=== PATIENT | male | born 1995 | race Caucasian/White ===

== ENCOUNTER 2025-03-07 14:25 | Inpatient (IN) | payer SELFPAY ==
--- OUTSIDE RECORDS SUMMARY | 2025-03-05 19:22 | XMS_ITS | Encounter Summary ---
Author Organization [facility] Address [address] [place] [id number] Care Team Providers Care Gas Singer Name Role Phone Terry Green MD Primary Care Provider [phone] Reason for Visit * Reason Comments Behavioral Health Encounter Details Date Type Department Care Team (Late st Contact Info) Description 03/05/2025 7:22 PM EDT - 03/07/2025 12:25 PM EDT Emergency [facility] [address] [place] [id number] Darshan Flood MD 1 [facility] [place] [address] Ehsan Oseguera MD [address] [place] [phone] Dallas Rosales II, MD [address] [place] [id number] Marcus Hernandez MD [address] [place] [id number] Mookie Rodríguez MD [address] [place] [id number] Mookie Pantoja MD [address] [place] [id number] Floyd Alejandro MD [address] [place] [id number] Generalized anxiety disorder [F41.1] (Primary Dx); Depression, unspecified depression type Discharge Disposition: Transfer to Acute Care Hospital Social History Tobacco Use Types Packs/Day Years Used Date Smoking Tobacco: Never Assessed Sex and Gender Information Value Date Recorded Sex Assigned at Male 03/05/2025 7:48 PM EDT Legal Sex Male 3:43 PM EDT Gender Identity Male 03/05/2025 11:21 PM EDT Sexual Orientation Not on file documented as of this encounter Last Filed Vital Signs Vital Sign Reading Time Taken Comments Blood Pressure 124/82 03/07/2025 12:01 PM EDT Pulse 78 03/07/2025 12:01 PM EDT Temperature 36.4 C (97.5 F) 03/06/2025 8:55 AM EDT Respiratory Rate 18 03/07/2025 12:0 0 AM EDT Oxygen Saturation 98% 03/07/2025 12: 01 PM EDT Inhaled Oxygen Concentration - - Weight 77.1 kg (169 lb 15.6 oz) 03/07/2025 3:23 AM EDT Height 182.9 cm (6') 03/07/2025 3:23 AM EDT Body Mass Index 23.05 03/07/2025 3:23 AM EDT documented in this encounter Progress Notes * Jessica Salinas - 03/07/2025 10:33 AM EDT Behavioral Health Crisis Consult- Contact Note Patient: Charles Coffman : 1995 Admit Date: 03/05/2025 Date of Consult: 03/07/2025 Time of Consult: 10:33 AM Narrative: Patient: Charles Coffman Accepting Facility: [facility] Accepting Facility Address: [address] [place] [address] Accepting MD: Dr Jarquin Arrival Time: 1 PM arrival Nurse to Nurse Report: They will call the ED Other Labs or Needs: none HCP/Guardian (if applicable): none Reason for Section 12: self harm Information Given To: secure chat * Jessica Salinas - 03/07/2025 8:48 AM EDT Behavioral Health Crisis Consult- Contact Note Patient: Charles Coffman : 1995 Admit Date: 03/05/2025 Date of Consult: 03/07/2025 Time of Consult: 8:48 AM Narrative: Bed Search Inpatient Unit Referral Date Referral Time Began Review Date Began Review Time Accepted Date Accepted Time Decline Date Decline Time Reason If Decline Comment [facility] Accessible 03/06/25 7:26 AM EDT [facility] Accessible 03/06/25 7:26 AM EDT [facility] Accessible 03/06/25 7:26 AM EDT [facility] Accessible 03/06/25 7:26 AM EDT [facility] Accessible 03/06/25 7:26 AM EDT [facility] 03/06/25 7:26 AM EDT [facility] Accessible 03/06/25 7:27 AM EDT [facility] 03/06/25 7:27 AM EDT [facility] 03/06/25 7:27 AM EDT [facility] 03/07/25 8:47 AM EDT [facility] Accessible 03/07/25 8:47 AM EDT [facility] 03/07/25 8:47 AM EDT [facility] Accessible 03/07/25 8:47 AM EDT [facility] Accessible 03/07/25 8:47 AM EDT [facility] Accessible 03/07/25 8:47 AM EDT * Soni Barnett, COMPENSATION AGENT - 03/06/2025 9:51 AM EDT Behavioral Health Crisis Consult - Follow Up Patient: Charles Coffman : 1995 Admit Date: 03/05/2025 Date of Consult: 03/06/2025 Time of Consult: 9:51 AM CC: Chief Complaint Patient presents with Behavioral Health Chart Reviewed, case discussed with team and staff. Patient reports that he is fine , but seems irritable that he remains at the ED Updates: Psych consult outcome/psych medications: Collateral Contact: Yes ([phone] - Tammra - girlfriend) Medical/Psychiatric/Substance/Social/Family History: Histories from previous consult note of 03/05 remain unchanged, except as note in HPI. Current Medications: Scheduled Medications[1] Current PRN: PRN Medications[2] Allergies: Levofloxacin Physical Exam: Patient Vitals for the past 24 hrs: BP Temp Temp src Pulse Resp SpO2 03/06/25 0855 116/76 97.5 ??F (36.4 ??C) -- 76 20 100 % 03/05/25 1927 117/69 98.1 ??F (36.7 ??C) Oral 87 15 98 % Mental Status Exam: No changes Labs, Imaging & Other Studies: Laboratory: Recent lab results have been reviewed and are notable for Results for orders placed or performed during the hospital encounter of 03/05/25 (from the past 24 hours) Basic Metabolic Panel Result Value Ref Range Sodium 139 134 - 144 mmol/L Potassium 4.1 3.2 - 5.1 mmol/L Chloride 103 97 - 109 mmol/L Total CO2/Bicarbonate 28 20 - 32 mmol/L Anion Gap 8 5 - 15 mmol/L Anion Gap BUN 14 9 - 26 mg/dL Creatinine, Blood 1.43 (H) 0.70 - 1.30 mg/dL Glucose, Blood 97 70 - 110 mg/dL Calcium 9.4 8.5 - 10.5 mg/dL Estimated GFR (MDRD) 58 (L) >=60 mL/min/BSA Drug Screen, Urine Result Value Ref Range Amphetamines Screen, Urine Negative Negative Barbiturates Screen, Urine Negative Negative Benzodiazepine Screen, Urine Positive (A) Negative Buprenorphine Screen, Urine Negative Negative Cannabinoids Screen, Urine Negative Negative Cocaine Metabolite Screen, Urine Negative Negative Methadone Screen, Urine Negative Negative Methamphetamine, Urine Negative Negative Opiates Screen, Urine Negative Negative Oxycodone Screen, Urine Positive (A) Negative TCA, Urine Negative Negative Creatinine, John Urine 91.3 No Established Reference Range mg/dL Fentanyl Screen, Urine Negative Negative Tramadol Screen, Urine Negative Negative 6-Aceytlmorphine Screen, Urine Negative Negative Phencyclidine Screen, Urine Negative Negative Plasma Toxicology Screen Result Value Ref Range Acetaminophen Result,Blood <3 (L) Therapuetic Range 10-30 ug/mL Alcohol <10 <10 mg/dL Salicylate Level, Blood <5 (L) 15 - <30 mg/dL CBC and Differential Result Value Ref Range WBC 9.84 4.00 - 11.00 K/uL RBC 4.84 4.10 - 5.60 M/uL Hemoglobin 14.4 12.7 - 16.7 g/dL Hematocrit 42.4 38.0 - 50.0 % MCH 29.8 23.0 - 37.0 pg MCHC 34.0 29.0 - 38.0 g/dL MCV 88 82 - 98 fL RDW 12.2 11.5 - 15.0 % Platelet Count 281 150 - 450 K/uL MPV 8.5 8.0 - 14.0 fL Neutrophil 57.4 % Lymphocyte 31.2 % Monocyte 9.0 % Eosinophil 1.5 % Basophil 0.6 % Immature Granulocyte ([place], Myelo, Promyelocyte) 0.3 % Absolute Neutrophil Count 5.64 1.50 - 7.70 K/uL Absolute Immature Granulocyte ([place], Myelo, Promyelocyte) 0.03 0.00 - 0.09 K/uL Absolute Lymphocyte Count 3.07 1.00 - 5.00 K/uL Absolute Monocyte Count 0.89 0.10 - 1.00 K/uL Absolute Eosinophil Count 0.15 0.00 - 0.70 K/uL Absolute Basophil Count 0.06 0.00 - 0.20 K/uL Fentanyl Screen, Urine Result Value Ref Range Fentanyl Screen, Urine Negative Negative Tramadol Screen, Urine Result Value Ref Range Tramadol Screen, Urine Negative Negative 6-Acetylmorphine Screen, Urine Result Value Ref Range 6-Aceytlmorphine Screen, Urine Negative Negative EKG: No studies were reviewed. C-SSRS: Green Suicide Severity Rating Scale (C-SSRS) Since Last Contact Screener 1) Have you wished you were or wished you could go to sleep and not wake up? (Since Last Contact): No 2) Have you actually had any thoughts about killing yourself? (Since Last Contact): No 6) Have you done anything, started to do anything, or prepared to do anything to end your life? (Since Last Contact): No C-SSRS Risk Level (Since Last Contact Screener): No Risk Indicated (03/06/25 0946 : Soni Barnett COMPENSATION AGENT) Assessment: Patient is a 29 y.o. male with past medical and psychiatric history as above now presents as fine . The patient does seem to be immediately closed off to this clinician, does not seem to want to engage and is irritable that he remains at the hospital. This clinician asks the patient to recall what brought him to the emergency room, he shares, my girlfriend called the slag dumper because I was in the bathroom with the door locked , he goes on to say, she said I was trying to hurt myself . This clinician inquired with the patient why his girlfriend mayhave been concerned that he would hurt himself, he responds, Maybe because I am stressed- she is 8weeks , rent, my job . The patient reports that PD showed up and they told him he had to come to the hospital. When this clinician inquired if the patient had a belt around his neck, the patient responds, police said they saw a tigre around my neck, but she told slag dumper I had a belt around my neck . This clinician inquired what the williamson were around his neck if he did not use a belt, he responded by saying that it could have been from me and her getting into it , then stating that it was a crazy night. The patient ensures this clinician that there is No DV going on . The patient sharesthat the slag dumper would have been able to see him if he were doing anything because the kitchen is right by the front door, but the patient states, She is 8 weeks and nuts when asked why his girlfriend would have called the slag dumper and be worried about him. The patient denies any past hx of inpatient admissions, denies SI/HI/AH/VH. 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 The patients energy is high, hereports going to work and the gym every day, sleep is alright , he shares that he has anxiety so it can be difficult for him to go to bed, appetite is wnl, he shares that he eats a lot. The patient seems to present with limited insight and judgement, the patient does not seem to provide clear explanations of what occurred when he was brought into the emergency room, and is guarded with answers to questions. The patient is unable to engage in safety planning. Due to continued concern of the patients safety, as well as being found with a belt around his neck, displaying concern of behaviors and ability to remain safe, the patient will remain an inpatient level of care. There also continues to be concern of the patients grossly impaired insight and judgement. Recommendations: IPLOC Requested LOC: Barriers to placement/Specialty Placement Required: Disposition Recommendation: Inpatient Level of Care Behavioral Health Diagnosis: F41.9 Anxiety Duration: Time Spent (min): 45 Case d/w: RN, , AOC Signed by: Soni Barnett LCSW [1] [2] nicotine polacrilex * Jessica Salinas - 03/06/2025 7:27 AM EDT Behavioral Health Crisis Consult- Contact Note Patient: Charles Coffman : 1995 Admit Date: 03/05/2025 Date of Consult: 03/06/2025 Time of Consult: 7:27 AM Narrative: Bed Search Inpatient Unit Referral Date Referral Time Began Review Date Began Review Time Accepted Date Accepted Time Decline Date Decline Time Reason If Decline Comment [facility] Accessible 03/06/25 7:26 AM EDT [facility] Accessible 03/06/25 7:26 AM EDT [facility] Accessible 03/06/25 7:26 AM EDT [facility] Accessible 03/06/25 7:26 AM EDT [facility] Accessible 03/06/25 7:26 AM EDT [facility] 03/06/25 7:26 AM EDT [facility] Accessible 03/06/25 7:27 AM EDT [facility] 03/06/25 7:27 AM EDT [facility] 03/06/25 7:27 AM EDT documented in this encounter Consult Notes * Rhonda Pearce LCSW - 03/05/2025 11:15 PM EDTAssociated Order(s): BEHAVIORAL HEALTH CRISIS EVALUATION Behavioral Health Crisis Consult - Initial Assessment Patient: Charles Coffman : 1995 Admit Date: 03/05/2025 Date of Consult: 03/05/2025 Time of Consult: 11:15 PM Consult Requested by: No att. providers found Reason for Consult: Reason for Consult: concerns for safety Chief Complaint Patient presents with Behavioral Health History of Present Illness: Patient is a 29 y.o. male with past medical and psychiatric history as listed who presented to the hospital on 03/05/2025 for Behavioral Health. Behavioral Health is consulted for mental health evaluation and level of care recommendations. The patient with history of anxiety, PTSD, and substance use disorder presents under Section 12 after girlfriend expressed concern for self-harm. Per report, patient was found with belt williamson on his neck on two occasions. Patient denies suicidal intent, stating, ???My girlfriend is just hormonal because she???s .?? He endorses increased stress related to finances, maintaining sobriety, and his girlfriend???s (8 weeks). Patient admits to buying Ativan ???off the street,?? taking approximately 0.5- 2mg today for anxiety, and prescribed oxycodone yesterday for dental procedure. Denies regular use or intent to overdose. States he has been sober from fentanyl for 10 months after completing treatment at [facility]. Reports poor sleep and racing thoughts, fair appetite, and identifies mood as ???stressed and overwhelmed.?? Denies SI/HI, AH/VH. While in bathroom, patient was heard making loud noises. Security located small bag of blue/green pills on his person; pills disposed. Patient changed into paper scrubs and remained calm. PT very hesitant to provide contact information for his girlfriend stating she is asleep. Finally provided information, however recording states phone number is not reachable. Attempted text message as well with no response. Per [place] [employer], officers were dispatched after girlfriendreported patient locked himself in the bathroom and was attempting to harm himself. Girlfriend had recently confronted patient after finding messages with other women on his phone. Upon arrival, officers observed the patient with a belt around his neck and visible ligature williamson consistent with self-strangulation. Officers reported patient was agitated and stated, ???I feel like I???m drowning.?? Patient was transported under Section 12. Medical History: has no past medical history on file. has no past surgical history on file. Psychiatric History: History of psychiatric illness?: No History of suicidal ideation?: No History of non-suicidal self injury?: No History of interpersonal aggression?: No History of past VARGAS?: Yes Treatment History?: Yes Inpatient Treatment:: Detox Current Providers?: No Collateral Contact: Yes ([phone] - [facility] - girlfriend) Home Medications: Prescriptions Prior to Admission[1] Current Medications: Scheduled Medications[2] Current PRN: PRN Medications[3] Allergies: Levofloxacin Substance Use History Alcohol: Substance and Sexual Activity Alcohol Use Not on file In the past 12 months,have you had 5 or more drinks(men)/4 or more drinks (women) containing alcohol in one day?: No Tobacco: has no history on file for tobacco use. Other: has no history on file for drug use. Prescription Medications: In the past 12 months,have you used any prescription medications just for the feeling, more than prescribed or that were no prescribed for you?: Yes Types of Medications:: Benzodiazepines Use/ frequency per week:: getting Ativan from a friend, has used ativan 3-4 times in past month andclonipin 2-3 times Last use:: 03/05/25 Substances: In the past 12 months, have you used any drugs?: Yes Drugs used:: Fentanyl Use/ frequency per week:: sober for 10 months Medical and Psychiatric Consequences: Medical/Psychiatric Consequences:: None Psychosocial Consequences: Psychosocial consequences:: None Social History: lives with his girlfriend of one year, she is 8 weeks , found out about a month ago. Also has a son who has limited contact with, son lives in [place] with his bio MO. No contact with his MO as he reports she is an alcoholic, never knew his FA. States little brother, uncle, girlfriend, sister, cousin are his support system. 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 Family History: Family History[4] Family history of psychiatric illness?: Yes Family history of VARGAS?: Yes Family history of suicidal ideation, attempt or completed suicide?: (unknown) Physical Exam: Patient Vitals for the past 24 hrs: BP Temp Temp src Pulse Resp SpO2 03/05/25 1927 117/69 98.1 ??F (36.7 ??C) Oral 87 15 98 % Mental Status Exam: Mental Status Exam General Appearance: Appears stated age, well-developed, well-nourished, appropriately groomed, appropriately dressed and no apparent distress. Level of Consciousness: Alert. Orientation: Oriented to person, place and time. Attitude and Behavior: Cooperative. Guarded. Eye Contact: Eye contact intermittent. Psychomotor Activity: Normal. Speech: Normal rate, volume, rhythm, coherence, articulation, prosody and pitch. Language: Normal. Mood: Patient description of mood: Stressed and overwhelmed. Affect: Full range. Thought Process and Associations: Logical and goal directed. Thought Content: Normal. No suicidal ideation, no self-injurious ideation, no homicidal ideation and not actively hallucinating. No delusions and no obsessions. Attention Span: Appropriate. Memory: Grossly intact. Fund of Knowledge: Normal. Cognition: Normal. Insight: Fair. Judgment: Resists help despite evidence of mental illness. Labs, Imaging & Other Studies: Laboratory: Recent lab results have been reviewed and are notable for see below Results for orders placed or performed during the hospital encounter of 03/05/25 (from the past 24 hours) Basic Metabolic Panel Result Value Ref Range Sodium 139 134 - 144 mmol/L Potassium 4.1 3.2 - 5.1 mmol/L Chloride 103 97 - 109 mmol/L Total CO2/Bicarbonate 28 20 - 32 mmol/L Anion Gap 8 5 - 15 mmol/L Anion Gap BUN 14 9 - 26 mg/dL Creatinine, Blood 1.43 (H) 0.70 - 1.30 mg/dL Glucose, Blood 97 70 - 110 mg/dL Calcium 9.4 8.5 - 10.5 mg/dL Estimated GFR (MDRD) 58 (L) >=60 mL/min/BSA Drug Screen, Urine Result Value Ref Range Amphetamines Screen, Urine Negative Negative Barbiturates Screen, Urine Negative Negative Benzodiazepine Screen, Urine Positive (A) Negative Buprenorphine Screen, Urine Negative Negative Cannabinoids Screen, Urine Negative Negative Cocaine Metabolite Screen, Urine Negative Negative Methadone Screen, Urine Negative Negative Methamphetamine, Urine Negative Negative Opiates Screen, Urine Negative Negative Oxycodone Screen, Urine Positive (A) Negative TCA, Urine Negative Negative Creatinine, John Urine 91.3 No Established Reference Range mg/dL Fentanyl Screen, Urine Negative Negative Tramadol Screen, Urine Negative Negative 6-Aceytlmorphine Screen, Urine Negative Negative Phencyclidine Screen, Urine Negative Negative Plasma Toxicology Screen Result Value Ref Range Acetaminophen Result,Blood <3 (L) Therapuetic Range 10-30 ug/mL Alcohol <10 <10 mg/dL Salicylate Level, Blood <5 (L) 15 - <30 mg/dL CBC and Differential Result Value Ref Range WBC 9.84 4.00 - 11.00 K/uL RBC 4.84 4.10 - 5.60 M/uL Hemoglobin 14.4 12.7 - 16.7 g/dL Hematocrit 42.4 38.0 - 50.0 % MCH 29.8 23.0 - 37.0 pg MCHC 34.0 29.0 - 38.0 g/dL MCV 88 82 - 98 fL RDW 12.2 11.5 - 15.0 % Platelet Count 281 150 - 450 K/uL MPV 8.5 8.0 - 14.0 fL Neutrophil 57.4 % Lymphocyte 31.2 % Monocyte 9.0 % Eosinophil 1.5 % Basophil 0.6 % Immature Granulocyte ([place], Myelo, Promyelocyte) 0.3 % Absolute Neutrophil Count 5.64 1.50 - 7.70 K/uL Absolute Immature Granulocyte ([place], Myelo, Promyelocyte) 0.03 0.00 - 0.09 K/uL Absolute Lymphocyte Count 3.07 1.00 - 5.00 K/uL Absolute Monocyte Count 0.89 0.10 - 1.00 K/uL Absolute Eosinophil Count 0.15 0.00 - 0.70 K/uL Absolute Basophil Count 0.06 0.00 - 0.20 K/uL Fentanyl Screen, Urine Result Value Ref Range Fentanyl Screen, Urine Negative Negative Tramadol Screen, Urine Result Value Ref Range Tramadol Screen, Urine Negative Negative 6-Acetylmorphine Screen, Urine Result Value Ref Range 6-Aceytlmorphine Screen, Urine Negative Negative EKG: No studies were reviewed. C-SSRS Screener and SAFE-T: Green Suicide Severity Rating Scale (C-SSRS) Screener 1) In the past month, have you wished you were or wished you could go to sleep and not wake up?: No 2) In the past month, have you actually had any thoughts of killing yourself?: No 6a.) Have you ever done anything, started to do anything, or prepared to do anything to end your life?: No C-SSRS Screener Risk Level: No Risk Indicated History of Psychiatric Diagnosis:: Alcohol/Substance Use Disorder Presenting Symptoms: Anxiety and/or panic, Hopelessness or despair Family History: Other (Comment) (substance use) Precipitants/ Stressors/ Interpersonal: History of trauma, Social isolation Change in Treatment: Not receiving treatment Access to lethal methods: Ask specifically about presence or absence of a firearm in the home or ease of accessing: No Step 2: Identify Protective Factors (Protective factors may not counteract significant acute suicide risk factors) Internal Protective Factors: Identifies reason for living, Identified coping strategies External Protective Factors: Active day structures- engaged in school, work, and/or volunteer work Step 4: Guidelines to Determine Level of Risk and Develop Interventions to LOWER Risk Level Rationale for Suicide Risk Level: PT denies thoughts, plan, or intent to harm himself. However circumstances of presentation include that for the past few nights his girlfriend has noticed him to be in the bathroom for extended periods of time and to come out of the bathroom with belt williamson around his neck. He denies this, stating his girlfriend is and hormonal . Denies HX of attempts. Management of Suicide Risk: Because PT was observed by police to have a belt around his neck and visible williamson, the patient will be further assessed for psychiatric inpatient level of care Assessment: Patient is a 29 y.o. male with past medical and psychiatric history as above now presents under Section 12 after his girlfriend expressed concern for self-harm. Collateral from [place] [employer] indicates the patient placed a belt around his neck following a conflict with his girlfriend regarding possible infidelity. Officers observed ligature williamson, noted patient agitation, and reportedhe stated, ???I feel like I???m drowning.?? The patient denies suicidal intent, attributing his behavior to stress related to finances, work, housing, relationship conflict, and his girlfriend???s . He reports episodic non-prescribed benzodiazepine use and prescribed oxycodone for a recent dental procedure. Mood is ???stressed and overwhelmed,?? with poor sleep and situational anxiety. Mental status examination: alert, oriented x4, calm, cooperative, linear thought process, congruentaffect, intact cognition, fair insight/judgment, no hallucinations or delusions. Behavioral observations include prior loud noise in the bathroom and possession of non-prescribed pills, which weredisposed. Given recent self-harm with a lethal means, visible ligature williamson, agitation, acute stress, and recent substance misuse, the patient is assessed at risk for self-harm. Inpatient psychiatric treatment is indicated to ensure safety, provide stabilization, monitor for self-harm or substance-related risk, initiate or adjust psychiatric treatment, and coordinate outpatient follow-up. Consult with ED Dr Flood who is in agreement. Recommendations: IP LOC for safety and stabilizaiton Intervention and Stabilization Services Requested: Disposition Recommendation: Patient meets criteria for opioid use disorder (OUD): No Behavioral Health Diagnosis: F41.9 Unspecified Anxiety Disorder Duration: Discussed with Wood Furniture Assembler: No Discussed with Medical Team: Yes . Dr Darshan Flood Signed by: Rhonda Pearce LCSW [1] (Not in a hospital admission) [2] [3] [4] No family history on file. documented in this encounter ED Notes * Denise Law RN - 03/07/2025 11:27 AM EDT Nurse to nurse given to receiving facility at [facility]. * Madisyn Marcos RN - 03/07/2025 7:21 AM EDT Breakfast tray ordered * Shaila Bolivar RN - 03/07/2025 3:25 AM EDT Assumed care of pt. Pt resting w/ eyes closed in supine position - no acute distress noted w/ visible chest rise and fall visualized, resps easy and unlabored. Safety maintained w/ continuing safety watch. * Stacia Castanon RN - 03/06/2025 10:52 PM EDT Clinician met with this pt and reiterated the plan to stay. Pt in denial of all statements his girlfriend claimed he made but maintains calm and no aggressive behavior noted * Stacia Castanon RN - 03/06/2025 5:27 PM EDT Pt was updated by this RN that he will be going inpatient due to his evaluation that deemed him unsafe to go back home at this time. Pt states he wants to go home and sleep in his own bed. Clinician contacted at this time and will speak with patient about an updated plan. Dinner ordered * Denise Law RN - 03/06/2025 12:30 PM EDT RN at bedside at this time, vitals checked and stable. Patient noticed to be resting in room at this time. This RN encouraged patient to order lunch. Patient refused food at this time. Patient did not eat breakfast. RN ordered lunch tray to encourage patient to eat. Security watch remains in placed. * Madisyn Marcos RN - 03/06/2025 8:57 AM EDT Pt awake and ambulatory to bathroom, vitals taken. Offered breakfast tray which pt declined. Offered coffee which pt also declined. Pt stating he wants the doctor so he can leave. Explained to pt hisplan of care and that he cannot leave. Security watch continues. Pt denies taking any daily prescribed medications. * Madisyn Marcos RN - 03/06/2025 8:21 AM EDT Pt sleeping, security watch continues. Breakfast tray ordered. * Jessica Osorio RN - 03/06/2025 7:01 AM EDT Pt resting w/ eyes closed - no acute distress noted w/ visible chest rise and fall visualized, resps easy and unlabored. Safety maintained w/ continuing safety watch. * Jessica Osorio RN - 03/06/2025 4:04 AM EDT Pt resting w/ eyes closed - no acute distress noted w/ visible chest rise and fall visualized, resps easy and unlabored. Safety maintained w/ continuing safety watch. * Esperanza Heaton RN - 03/06/2025 12:30 AM EDT Pt asking for an update. Pt made aware he is an inpatient bed search and will be in the ED until they find him a bed. Pt angry and yelling. Pt verbalizing he rather be in longterm then here . Pt worriedabout not working and not being able to afford his rent. Pt stated I would rather kill myself thenbe homeless and have no money . Pt made aware again that he is here on a section 12 from the police and he cannot go anywhere. Pt asked not to yell and told that there are manager rn case that can helpgive him resources if he feels that he needs them. Pt sitting at the edge of the bed talking with security. Security in hallway and safety measures in place. * Esperanza Heaton RN - 03/05/2025 9:12 PM EDT Pt went to the bathroom. Pt began making loud noises while in the bathroom. Security checked on pt d/t loud noises. Pt was found wearing multiple layers of pants. Pt searched again by security andchanged into paper scrubs. Upon securities search pt was found with small bag of blue and green chevak pills. Pills disposed in wasted by Ronal Camargo RN. This RN and Trevor crossing guard, witnessed RN waste pills. Pt back in stretcher. Security in hallway and safety measures in place. * Mary Jo Winchester RN - 03/05/2025 7:24 PM EDT BIBA from home, girlfriend concerned because patient has been buying anxiety meds off the street and both tonight and last night patient locked himself in the bathroom and came out with belt williamson onhis neck. Girlfriend told a friend and friend called 911. Pt reports hx psychiatric treatment in past. Arrives on section 12 by police. Pt denies SI, states that his girlfriend just found out she is and is hormonal . Denies that he tried to hang himself but reports he bought prescription ativan from the street. * Floyd Alejandro MD - 03/05/2025 7:21 PM EDT Date of service: 03/05/2025 EMERGENCY DEPARTMENT ENCOUNTER NURSING TRIAGE NOTE Triage Notes Mary Jo Winchester RN 03/05/2025 7:39 PM BIBA from home, girlfriend concerned because patient has been buying anxiety meds off the street and both tonight and last night patient locked himself in the bathroom and came out with belt williamson onhis neck. Girlfriend told a friend and friend called 911. Pt reports hx psychiatric treatment in past. Arrives on section 12 by police. Pt denies SI, states that his girlfriend just found out she is and is hormonal . Denies that he tried to hang himself but reports he bought prescription ativan from the street. Original note by Mary Jo Winchester RN at 03/05/2025 7:27 PM Mary Jo Winchester RN 03/05/2025 7:27 PM BIBA from home, girlfriend concerned because patient has been buying anxiety meds off the street and both tonight and last night patient locked himself in the bathroom and came out with belt williamson onhis neck. Girlfriend told a friend and friend called 911. Pt reports hx psychiatric treatment in past. Addendum to note by Mary Jo Winchester RN at 03/05/2025 7:39 PM Triage Notes Reviewed by Provider: Floyd Alejandro MD 03/07/2511:52 AM Previous Medical Records Reviewed: yes History Obtained From: patient CHIEF COMPLAINT Chief Complaint Patient presents with Behavioral Health HPI Charles Coffman is a 29 y.o. male who presents in on a section 12 from police. Patient's girlfriend called and stated that patient locked himself in the bathroom and came out with belt williamson on his neck. He denies hanging himself. According to the section, she reported that this happened 2 days ago also. He denies this happening. He denies any thoughts of hurting himself. He reports that his girlfriend has been hormonal since she is 8 weeks . This was not an expected . He has been buying benzos off the street. He admits to taking an Ativan and Klonopin today. Denies any alcohol use. Denies any medical complaints but does report that he currently has a 1 cm kidney stone that he needs to have surgery on. PAST MEDICAL HISTORY Past Medical History[1] FAMILY HISTORY Family History[2] SOCIAL HISTORY Social History[3] SURGICAL HISTORY Past Surgical History[4] CURRENT MEDICATIONS ALLERGIES Allergies[5] PHYSICAL EXAM VITAL SIGNS: Patient Vitals for the past 24 hrs: BP Pulse Resp SpO2 Height Weight 03/07/25 0323 -- -- -- -- 1.829 m (6') 77.1 kg (169 lb 15.6 oz) 03/07/25 0000 -- -- 18 -- -- -- 03/06/25 2108 108/64 55 17 98 % -- -- 03/06/25 1226 117/69 67 18 100 % -- -- Constitutional: Well developed, well nourished, no acute distress, non-toxic appearance. Appears high Eyes: EOMI, conjunctiva normal. HENT: Atraumatic, oropharynx moist. Neck supple. No markings noted to neck Respiratory: No respiratory distress, normal breath sounds. Cardiovascular: Normal rate,normal rhythm, no murmurs Musculoskeletal: No edema, atraumatic Skin: Warm, dry, no rash. Neurologic: Alert & oriented x 3, no focal deficits. EKG/RADIOLOGY/LABS No results found. No results found for this or any previous visit (from the past 24 hours). ED COURSE/PROCEDURES/ASSESSMENT This is a 29-year-old male who is brought in on a section 12 after his girlfriend reported that he tried to hang himself behind a closed door. Patient denies this. Patient was medically cleared and will be seen by psych clinician. Patient signed out to Dr. Flood at change of shift. MDM Clinical Impression 1. Generalized anxiety disorder [F41.1] 2. Depression, unspecified depression type Disposition: ED Disposition ED Disposition Transfer to Psych Facility Condition -- Comment -- ED Prescriptions None RICK Mir 03/05/25 2316 RICK Mir 03/05/25 2321 ADDENDUM: Care of patient signed out to me by Yoselyn Rader with plan for evaluation by psych clinician. Seen by behavioral health clinician. Patient is denying SI, but she spoke with police who confirmedsuicide attempt. They are recommending inpatient psych placement, which seems appropriate. The patient???s care was escalated to observation status at 11:45 PM on 03/05/25. Observation was necessary for serial behavioral health assessments related to suicidality. 1:02 AM Patient became somewhat more animated and argumentative with security. I went and met with him. I explained that he was currently on a section 12 and that the behavioral health clinician recommended inpatient psychiatric placement. He is frustrated about this. I offered medications, he was treated with oral Ativan as well as nicotine gum. He did seem more calm after this discussion. Care of patient will be signed out to Dr. Oseguera at change of shift. Darshan Flood MD 03/06/25 0103 The patient was signed out to me by Dr. Rosales and was re-evaluated at 4:02 PM on 03/06/25. They are generally well appearing, in no acute distress, calm, cooperative, organized, denying hallucinations on exam. Still awaiting inpatient psychiatric bed availability. Home medications have been ordered. Marcus Hernandez MD 03/06/25 1602 The patient was signed out to me by Dr. Oseguera. They are generally well appearing, in no acute distress, calm, cooperative, organized, denying hallucinations on exam. My final assessment includes that the patient continues to require an inpatient level of care for their psychiatric needs and will be escalated to hospitalization. The patient was discharged from observation status at 11:52 AM on 03/07/25. They have been accepted at [facility]. Section 12 and transfer paperwork completed. The patient is aware of the plan. [1] No past medical history on file. [2] No family history on file. [3] Social History Socioeconomic History Marital status: Single [4] No past surgical history on file. [5] Allergies Allergen Reactions Levofloxacin Unknown LEVAQUIN Floyd Alejandro MD 03/07/25 1153 documented in this encounter Miscellaneous Notes * Care Coordination Note - JAYESH Zamudio - 03/06/2025 8:15 PM EDT Made 2 attempts to meet w/ patient at RN's request- on both occasions he was asleep in room 30 and security requested not to wake patient. If patient wakes during this shift security will alert this lead technical writer. Patient to be informed on decision making for Section 12 / inpatient recommendation. Patient was found on 03/05 evening with belt tightened around his neck, ligature williamson per the Sherice GONZALES who issued the initial Section 12. Patient's partner had called 911 reporting patient behaving bizarrely, locked in bathroom. Patient seen for initial eval on night of 03/05 and follow-up evalon morning of 03/06 - both supported Section 12 for inpatient treatment. 8:40pm met with patient, he states he wants to leave the ED at this time. Explained his current status as inpatient bed search. Patient is unhappy with decision making. He reports none of the information provided is true, states he was not making attempt to harm himself. States he did not put a belt around his neck and his girlfriend and Sherice GONZALES are lying. Sprinkler Tender explained status as uninsured and financial services contacted to update his health plan. Patient states he prefers to remain uninsured so you have to let me go . Advised patient his insurance status does not guide our clinical decision making. He remains in behavioral control, curled up on his side in bed covered with blankets, lights and TVon. He expresses his understanding to decision making, remains in control with no need for intervention. He declines having any additional needs at this time. * Care Coordination Note - JAYESH Zamudio - 03/06/2025 3:49 PM EDT Notified Change Financial requesting support for insurance screening. documented in this encounter Plan of Treatment Scheduled Orders Name Type Priority Associated Diagnoses Orde r Schedule ECG 12 lead ECG STAT Once for 1 Oc currences starting 03/05/2025 until 03/05/2025 documented as of this encounter Procedures Procedure Name Priority Date/Time Associated Diagnosis Comments 6-ACETYLMORPHINE SCREEN, URINE STAT 03/05/2025 8:40 PM EDT CBC AND DIFFERENTIAL STAT 03/05/2025 8:40 PM EDT TOXICOLOGY SCREEN, BLOOD STAT 03/05/2025 8:40 PM EDT DRUG SCREEN, URINE STAT 03/05/2025 8: 40 PM EDT TRAMADOL SCREEN, URINE STAT 03/05/2025 8:40 PM EDT FENTANYL SCREEN, URINE STAT 03/05/2025 8:40 PM EDT CBC AND DIFFERENTIAL STAT 03/05/2025 8:40 PM EDT BASIC METABOLIC PANEL STAT 03/05/2025 8:40 PM EDT documented in this encounter Results * 6-Acetylmorphine Screen, Urine (03/05/2025 8:40 PM EDT) 6-Aceytlmorphine Screen, Urine Negative Negative OleOle [id number] 03/05/2025 9:03 PM EDT [facility] Comment: 6-acetylmorphine cutoff is 10 ng/mL 6-acetylmorphine Add on order [id number] Opiates and Oxycodone, Urine, Confirmation, if confirmation desired. Results should be used for medical purposes only and not for any legal or employment evaluative purposes. Urine URINE SPECIMEN / Unknown Collection / Unknown 03/05/2025 8:40 PM EDT 03/05/2025 8:42 PM EDT Darshan Flood MD URINE ORDERABLES Final Result Performing Organization Address [facility] de Phone Number [facility] [address] [place] [address], * Tramadol Screen, Urine (03/05/2025 8:40 PM EDT) Tramadol Screen, Urine Negative Negative DEGROOT [id number] 03/05/2025 9:03 PM EDT [facility] Comment: Tramadol cutoff is 200 ng/mL Tramadol. Add-on order [id number] Tramadol Confirmation, Urine, if confirmation desired. Results should be used for medical purposes only and not for any legal or employment evaluative purposes. Urine URINE SPECIMEN / Unknown Collection / Unknown 03/05/2025 8:40 PM EDT 03/05/2025 8:42 PM EDT us Darshan Flood MD URINE ORDERABLES Final Result Performing Organization Address [facility] Phone Number [facility] [address] [place] [address], * Fentanyl Screen, Urine (03/05/2025 8:40 PM EDT) Fentanyl Screen, Urine Negative Negative [facility] [id number] 03/05/2025 9:03 PM EDT [facility] Urine URINE SPECIMEN / Unknown Collection / Unknown 03/05/2025 8:40 PM EDT 03/05/2025 8:42 PM EDT us Darshan Flood MD URINE ORDERABLES Final Result Performing Organization Address [facility] de Phone Number [facility] [address] [place] [address], * CBC and Differential (03/05/2025 8:40 PM EDT) WBC 9.84 4.00 - 11.00 K/uL 03/05/2025 8:45 PM EDT [facility] RBC 4.84 4.10 - 5.60 M/uL 03/05/2025 8:45 PM EDT [facility] Hemoglobin 14.4 12.7 - 16.7 g/dL 03/05/2025 8:45 PM [facility] Hematocrit 42.4 38.0 - 50.0 % 03/05/2025 8:45 PM [facility] MCH 29.8 23.0 - 37.0 pg 03/05/2025 8:45 PM [facility] MCHC 34.0 29.0 - 38.0 g/dL 03/05/2025 8:45 PM [facility] MCV 88 82 - 98 fL 03/05/2025 8:45 PM [facility] RDW 12.2 11.5 - 15.0 % 03/05/2025 8:45 PM [facility] Platelet Count 281 150 - 450 K/uL 03/05/2025 8:45 PM [facility] MPV 8.5 8.0 - 14.0 fL 03/05/2025 8:45 PM [facility] Neutrophil 57.4 % 03/05/2025 8:45 PM [facility] Lymphocyte 31.2 % 03/05/2025 8:45 PM [facility] Monocyte 9.0 % 03/05/2025 8:45 PM [facility] Eosinophil 1.5 % 03/05/2025 8:45 PM [facility] Basophil 0.6 % 03/05/2025 8:45 PM [facility] Immature Granulocyte ([place], Myelo, Promyelocyte) 0.3 % 03/05/2025 8:45 PM [facility] Absolute Neutrophil Count 5.64 1.50 - 7.70 K/uL 03/05/2025 8:45 PM [facility] Absolute Immature Granulocyte ([place], Myelo, Promyelocyte) 0.03 0.00 - 0.09 K/uL 03/05/2025 8:45 PM [facility] Absolute Lymphocyte Count 3.07 1.00 - 5.00 K/uL 03/05/2025 8:45 PM [facility] Absolute Monocyte Count 0.89 0.10 - 1.00 K/uL 03/05/2025 8:45 PM EDT [facility] Absolute Eosinophil Count 0.15 0.00 - 0.70 K/uL 03/05/2025 8:45 PM EDT [facility] Absolute Basophil Count 0.06 0.00 - 0.20 K/uL 03/05/2025 8:45 PM EDT [facility] Blood PERIPHERAL BLOOD SPECIMEN / Unknown Venipuncture / Unknown 03/05/2025 8:40 PM EDT 03/05/2025 8:43 PM EDT us Darshan Flood MD LAB BLOOD ORDERABLES Final Resul t Performing Organization Address [facility] de Phone Number [facility] [address] [place] [address], * (ABNORMAL) Plasma Toxicology Screen (03/05/2025 8:40 PM EDT) Acetaminophen Result,Blood <3(L) Therapuetic Range 10-30 ug/mL [address] 03/05/2025 9:19 PM EDT [facility] Alcohol <10 <10 mg/dL [address] 03/05/2025 9:19 PM EDT [facility] Salicylate Level, Blood <5(L) 15 - <30 mg/dL [address] 03/05/2025 9:19 PM EDT [facility] Blood PERIPHERAL BLOOD SPECIMEN / Unknown Venipuncture / Unknown 03/05/2025 8:40 PM EDT 03/05/2025 8:43 PM EDT us Darshan Flood MD LAB BLOOD ORDERABLES Final Resul t Performing Organization Address [facility] Co de Phone Number [facility] [address] [place] [address], * (ABNORMAL) Drug Screen, Urine (03/05/2025 8:40 PM EDT) Pathologist [facility] Amphetamines Screen, Urine Negative Negative 03/05/2025 9:05 PM EDT [facility] Barbiturates Screen, Urine Negative Negative 03/05/2025 9:05 PM EDT [facility] Benzodiazepine Screen, Urine Positive(A) Negative 03/05/2025 9:05 PM [facility] Buprenorphine Screen, Urine Negative Negative 03/05/2025 9:05 PM [facility] Cannabinoids Screen, Urine Negative Negative 03/05/2025 9:05 PM [facility] Cocaine Metabolite Screen, Urine Negative Negative 03/05/2025 9:05 PM [facility] Methadone Screen, Urine Negative Negative 03/05/2025 9:05 PM [facility] Methamphetamine, Urine Negative Negative 03/05/2025 9:05 PM [facility] Opiates Screen, Urine Negative Negative 03/05/2025 9:05 PM [facility] Oxycodone Screen, Urine Positive(A) Negative 03/05/2025 9:05 PM [facility] TCA, Urine Negative Negative 03/05/2025 9:05 PM [facility] Creatinine, John Urine 91.3 No Established Reference Range mg/dL [facility] [id number] 03/05/2025 9:05 PM [facility] Fentanyl Screen, Urine Negative Negative [facility] [id number] 03/05/2025 9:05 PM [facility] Tramadol Screen, Urine Negative Negative [facility] [id number] 03/05/2025 9:05 PM [facility] 6-Aceytlmorphine Screen, Urine Negative Negative [facility] [id number] 03/05/2025 9:05 PM [facility] Phencyclidine Screen, Urine Negative Negative 03/05/2025 9:05 PM [facility] Urine URINE SPECIMEN / Unknown Collection / Unknown 03/05/2025 8:40 PM EDT 03/05/2025 8:42 PM [facility] - 03/05/2025 9:05 PM EDT Specimen analysis was performed without chain of custody handling. Urine drug screen results should be used for medical purposes only and not for any legal or employment evaluative purposes. Amphetamines cutoff is 500 ng/mL. Barbiturates cutoff is 200 ng/mL. Benzodiazepines cutoff is 150 ng/mL. Buprenorphine cutoff is 300 ng/mL. Cannabinoids cutoff is 50 ng/mL. Cocaine cutoff is 150 ng/mL. Methadone cutoff is 200 ng/mL. Methamphetamine cutoff is 500 ng/ml Opiates cutoff is 100 ng/mL. Oxycodone cutoff is 100 ng/mL. Phencyclidine (PCP) cutoff is 25 ng/mL TCA cutoff is 300 ng/mL Urine results are presumptive based only on screening methods and have not been confirmed by a second method. These results should be used only by physicians to render diagnosis, treatment, or to monitor progress of medical conditions. The assay is not intended to monitor compliance or absinence. Thresholds are established by the test emergency vehicle operations instructor. Drug levels below thresholds will be reported as negative. This is an antibody-antigen methods screening test and has the potential for false positive results caused by other drugs, medications and supplements with similar structures, if results are discordant clinically. us Darshan Flood MD URINE ORDERABLES Final Result [facility] [address] [place] [address], * (ABNORMAL) Basic Metabolic Panel (03/05/2025 8:40 PM EDT) Sodium 139 134 - 144 mmol/L [address] 03/05/2025 9:19 PM EDT [facility] Potassium 4.1 3.2 - 5.1 mmol/L [address] 03/05/2025 9:19 PM EDT [facility] Comment:Samples tested in se rust may exhibit a higher potassium value than those tested on plasma. Our current range is based on plasma testing. Chloride 103 97 - 109 mmol/L [address] 03/05/2025 9:19 PM EDT [facility] Total CO2/Bicarbonat e 28 20 - 32 mmol/L [address] 03/05/2025 9:19 PM EDT [facility] Anion Gap 8 5 - 15 mmol/L [address] 03/05/2025 9:19 PM EDT [facility] Anion Gap [address] 03/05/2025 9:19 PM EDT [facility] BUN 14 9 - 26 mg/dL [address] 03/05/2025 9:19 PM EDT [facility] Creatinine, Blood 1.43(H) 0.70 - 1.30 mg/dL [address] 03/05/2025 9:19 PM EDT [facility] Glucose, Blood 97 70 - 110 mg/dL [address] 03/05/2025 9:19 PM EDT [facility] Calcium 9.4 8.5 - 10.5 mg/dL [address] 03/05/2025 9:19 PM EDT [facility] Estimated GFR (MDRD) 58(L) >=60 mL/min/BSA [place] [id number] 03/05/2025 9:19 PM EDT [facility] Blood PERIPHERAL BLOOD SPECIMEN / Unknown Venipuncture / Unknown 03/05/2025 8:40 PM EDT 03/05/2025 8:43 PM EDT Darshan Flood MD LAB BLOOD ORDERABLES Final Resul t [facility] [address] [place] [address], documented in this encounter Visit Diagnoses Diagnosis Generalized anxiety disorder [F41.1]- Primary Generalized anxiety disorder Depression, unspecified depression type documented in this encounter Administered Medications Inactive Administered Medications - up to 3 most recent administrations Medication Order MAR Action Action Date Dose Rate Site LORazepam (ATIVAN) tablet 1 mg 1 mg, Oral, Once, 1 dose, On Thu03/07/25 at 1134 Given 03/07/2025 11:37 AM EDT 1 mg LORazepam (ATIVAN) tablet 2 mg 2 mg, Oral, Once, 1 dose, On Thu03/06/25 at 0054 Given 03/06/2025 12:57 AM EDT 2 mg nicotine polacrilex (NICORETTE) gum 4 mg 4 mg, Buccal, Every 2 hour PRN, Starting on Thu03/06/25 at 0052, Until Thu03/07/25 at 1425, smoking cessation Given 03/06/2025 12:57 AM EDT 4 mg documented in this encounter Active and Recently Administered Medications Times are shown in EDT. Scheduled Medication Order 03/05/2025 03/06/2025 03/07/2025 LORazepam (ATIVAN) tablet 1 mg (COMPLETED) 1 mg, Oral, Once, 1 dose, On Thu03/07/25 at 1134 1137 (Given - Provid er: Denise Law RN) LORazepam (ATIVAN) tablet 2 mg (COMPLETED) 2 mg, Oral, Once, 1 dose, On Thu03/06/25 at 0054 0057 (Given - Provider: Esperanza Heaton, RUCHI) PRN Medication Order 03/05/2025 03/06/2025 03/07/2025 nicotine polacrilex (NICORETTE) gum 4 mg 4 mg, Buccal, Every 2 hour PRN, Starting on Thu03/06/25 at 0052, Until Thu03/07/25 at 1425, smoking cessation 0057 (Given - Provider: Esperanza Heaton RN) documented in this encounter Care Teams Gas Singer Relationship Specialty Start Date End Date Terry Green MD [address] [place] [id number] PCP - General Internal Medicine 03/05/25 documented as of this encounter
[2025-03-07 15:30] VITALS: BP 135/72; PULSE 65; RESP 16; TEMP 36.5; O2SAT 98; BMI 20.2
--- NOTE | 2025-03-07 16:34 | PC.ADMIT ---
This is the 1st admission for this 29 y.o. male to [facility] Arrived on unit at 1440 via ambulance from [facility] ED on a Section 12A and placed on 15 min safety checks. Nurse to nurse done prior to admission. Skin check/change management specialist done upon admission with 2 staff present. Admitting Dx: Anxiety, PTSD, Substance Use Disorder. Tox screen positive for Benzos, Oxycodone. States in 7 days prior to 03/05/25 he had taken 15 1mg tabs of Ativan, 60 1mg tabs of Klonopin which became wet so he ingested the dust and then bought and consumed an additional 25 tabs of 1mg Klonopin. Prescribed Oxycodone yesterday post dental procedure. Reports hx substance hospital admission 05/07/25 at [facility]. 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 Per crisis eval pt was in bathroom of [facility] bathroom when he was overheard making loud noises. Security located small bag of blue/green pills on his person; pills disposed of. Pt was changed into paper scrubs. Denies medical issues. Precipitating events to admission per crisis eval: [place] [employer] were dispatched to pt's apt after girlfriend reported pt locked himself in bathroom and was attempting to harm himself. Girlfriend had confronted him about finding messages from another woman on his phone. Officers observed pt with a belt around his neck and visible ligature williamson consistent with self strangulation. Police reported pt was agitated and stated he felt like he was drowning. Pt denies having a belt around his neck and states he was in the bathroom taking Klonipin to get high, not a suicide attempt. No ligature williamson noted on admission. Appears to have fading acne williamson neck area. Denies depression, rates anxiety #10 on scale 1-10(10 worse). Denies SI/HI, denies AH/VH. Reports poor sleep, appetite ok per pt. Irritability noted during admission. States if he is not discharged soon he will lose his job. Will monitor for Benzo withdrawal. Signed CV after meeting with provider, Rayshawn Pulliam. Identified stressors: girlfriend, being clean from Fentanyl, new apt, absence from job.
--- OUTSIDE RECORDS SUMMARY | 2025-03-07 18:48 | XMS_ITS | Clinical Summary ---
Author Organization [facility] Address [address] [id number] Care Team Providers Care Millroom Supervisor Name Role Phone Terry Green MD Primary Care Provider Allergies Active Allergy Reactions Criticality Noted Date Comments Levofloxacin Other (see comments) 05/10/2024 Lip swelling, tongue numbness Social History Tobacco Use Types Packs/Day Years Used Date Smoking Tobacco: Never Assessed Tobacco Cessation:Counseling Given: Not Answered Sex and Gender Information Value Date Recorded Sex Assigned at Male 05/10/2024 3:21 PM EST Legal Sex Male 12:11 PM EST Gender Identity Not on file Sexual Orientation Not on file Last Filed Vital Signs Vital Sign Reading Time Taken Comments Blood Pressure 110/61 05/10/2024 6:35 PM EST Pulse 85 05/10/2024 6:35 PM EST Temperature 38 C (100.4 F) 05/10/2024 6:35 PM EST Respiratory Rate 18 05/10/2024 6:35 PM EST Oxygen Saturation 94% 05/10/2024 6:35 PM EST Inhaled Oxygen Concentration - - Weight - - Height - - Body Mass Index - - Plan of Treatment Health Maintenance Due Date Last Done Comments HIV Screening 1993 Hepatitis C Screening 1993 Varicella Vaccines (1 of 2 - 13+ 2-dose series) 2006 Hepatitis B Vaccines (1 of 3 - 19+ 3-dose series) 2012 DTaP,Tdap,and Td Vaccines (1 - Tdap) 08/16/2015 Alcohol/Substance Use Screening 05/11/2024 Depression Screening and Follow-Up 05/11/2024 Social Drivers of Health Amy ual Screening 05/11/2024 COVID-19 Vaccine (1 - 2024-2 6 season) 2025 Influenza Vaccine (#1) 2025 RSV Vaccine (60+ years old a nd patients) (1 - 1-dose 75+ series) 2068 Pneumococcal Vaccine: Pediat lorena (0-5 Years) and At-Risk Patients (6-50 Years) Aged Out No longer eligible b ased on patient's age to complete this topic [place] [address] [place] [address] MEDICAID Care Teams Millroom Supervisor Relationship Specialty Start Date End Date Terry Green MD Office of Dr. Amilcar Green [address] [place] [address] PCP - General General Surgery 05/10/24
--- OUTSIDE RECORDS SUMMARY | 2025-03-07 18:48 | XMS_ITS | Clinical Summary ---
Author Organization Alexa Salguero [facility] Address [address] [place] [address] Care Team Providers Care It Systems Analyst Name Role Phone Terry Green MD Primary Care Provider [phone] Allergies Active Allergy Reactions Criticality Noted Date Comments Levofloxacin Unknown 01/16/2022 LEVAQUIN Active Problems Problem Noted Date Diagnosed Date Chronic fatigue syndrome 03/05/2025 Drug intoxication without complication Generalized anxiety disorder 03/05/2025 Panic disorder 03/05/2025 Posttraumatic stress disorder 03/05/2025 Hypercholesterolemia 03/05/2025 Hyperlipidemia 03/05/2025 Insomnia related to another mental disorder 02/09 Opioid abuse 03/05/2025 Encounters Date Type Department Care Team Description 03/05/2025 7:22 PM EDT - 03/07/2025 12:25 PM EDT Emergency [facility] [address] [place] [id number] Darshan Flood MD Ayandeh, Armon, MD Reynolds, Legrand G II, MD Chang, Joseph L, MD Nims, MD Kit Damico Joshua Lee, MD Quinn, MD Floyd Generalized anxiety disorder [F41.1] (Primary Dx); Depression, unspecified depression type Discharge Disposition: Transfer to Acute Care Hospital 03/05/2025 Travel from Last 3 Months Social History Tobacco Use Types Packs/Day Years Used Date Smoking Tobacco: Never Assessed Sex and Gender Information Value Date Recorded Sex Assigned at Male 03/05/2025 7:48 PM EDT Legal Sex Male 3:43 PM EDT Gender Identity Male 03/05/2025 11:21 PM EDT Sexual Orientation Not on file Last Filed [...] Mass Index 23.05 03/07/2025 3:23 AM EDT Plan of Treatment Health Maintenance Due Date Last Done Comments Depression Screening 1997 Hepatitis C Screening 08/16/2011 DTaP,Tdap,and Td Vaccines (2 - Tdap) 03/10/2023 03/10/2013 COVID-19 Vaccine ( - 2023-2 5 season) 2025 Influenza Vaccine (#1) 2025 04/03/2009 Blood Pressure 03/06/2029 03/07/2025 Meningococcal B Vaccines Aged Out No longer eligible based on patient's age to complete this topic Meningococcal Vaccines Aged Out No lo nger eligible based on patient's age to complete this topic Pneumococcal Vaccine Aged Out No long er eligible based on patient's age to complete this topic Procedures Procedure Name Priority Date/Time Associated Diagnosis Comments CBC AND DIFFERENTIAL STAT 03/05/2025 8:40 PM EDT 6-ACETYLMORPHINE SCREEN, URINE STAT 03/05/2025 8:40 PM EDT TRAMADOL SCREEN, URINE STAT 03/05/2025 8:40 PM EDT FENTANYL SCREEN, URINE STAT 03/05/2025 8:40 PM EDT CBC AND DIFFERENTIAL STAT 03/05/2025 8:40 PM EDT TOXICOLOGY SCREEN, BLOOD STAT 03/05/2025 8:40 PM EDT DRUG SCREEN, URINE STAT 03/05/2025 8: 40 PM EDT BASIC METABOLIC PANEL STAT 03/05/2025 8:40 PM EDT from Last 3 Months Results * 6-Acetylmorphine Screen, Urine (03/05/2025 8:40 PM EDT) Pathologist [facility] 6-Aceytlmorphine Screen, Urine Negative Negative [facility] [id number] 03/05/2025 9:03 PM EDT [facility] Comment: 6-acetylmorphine cutoff is 10 ng/mL 6-acetylmorphine Add on order [id number] Opiates and Oxycodone, Urine, Confirmation, if confirmation desired. Results should be used for medical purposes only and not for any legal or employment evaluative purposes. Urine URINE SPECIMEN / Unknown Collection / Unknown 03/05/2025 8:40 PM EDT 03/05/2025 8:42 PM EDT Darshan Flood MD URINE ORDERABLES Final Result [facility] [address] [place] [address], * CBC and Differential (03/05/2025 8:40 PM EDT) Pathologist [facility] WBC 9.84 4.00 - 11.00 K/uL 03/05/2025 8:45 PM EDT [facility] RBC 4.84 4.10 - 5.60 M/uL 03/05/2025 8:45 PM EDT [facility] Hemoglobin 14.4 12.7 - 16.7 g/dL 03/05/2025 8:45 PM EDT [facility] Hematocrit 42.4 38.0 - 50.0 % 03/05/2025 8:45 PM EDT [facility] MCH 29.8 23.0 - 37.0 pg 03/05/2025 8:45 PM EDT [facility] MCHC 34.0 29.0 - 38.0 g/dL 03/05/2025 8:45 PM [facility] MCV 88 82 - 98 fL 03/05/2025 8:45 PM [facility] RDW 12.2 11.5 - 15.0 % 03/05/2025 8:45 PM [facility] Platelet Count 281 150 - 450 K/uL 03/05/2025 8:45 PM [facility] MPV 8.5 8.0 - 14.0 fL 03/05/2025 8:45 PM [facility] Neutrophil 57.4 % 03/05/2025 8:45 PM [facility] Lymphocyte 31.2 % 03/05/2025 8:45 PM [facility] Monocyte 9.0 % 03/05/2025 8:45 PM [facility] Eosinophil 1.5 % 03/05/2025 8:45 PM [facility] Basophil 0.6 % 03/05/2025 8:45 PM [facility] Immature Granulocyte ([place], Myelo, Promyelocyte) 0.3 % 03/05/2025 8:45 PM [facility] Absolute Neutrophil Count 5.64 1.50 - 7.70 K/uL 03/05/2025 8:45 PM [facility] Absolute Immature Granulocyte ([place], Myelo, Promyelocyte) 0.03 0.00 - 0.09 K/uL 03/05/2025 8:45 PM [facility] Absolute Lymphocyte Count 3.07 1.00 - 5.00 K/uL 03/05/2025 8:45 PM [facility] Absolute Monocyte Count 0.89 0.10 - 1.00 K/uL 03/05/2025 8:45 PM [facility] Absolute Eosinophil Count 0.15 0.00 - 0.70 K/uL 03/05/2025 8:45 PM [facility] Absolute Basophil Count 0.06 0.00 - 0.20 K/uL 03/05/2025 8:45 PM [facility] Blood PERIPHERAL BLOOD SPECIMEN / Unknown Venipuncture / Unknown 03/05/2025 8:40 PM EDT 03/05/2025 8:43 PM EDT us Darshan Gross MD LAB BLOOD ORDERABLES Final Resul t Performing Organization Address City/[facility]/ZIP Co de Phone Number [facility] [address] [place] [address], [place] [phone] * (ABNORMAL) Plasma Toxicology Screen (03/05/2025 8:40 PM EDT) Pathologist [facility] Acetaminophen Result,Blood <3(L) Therapuetic Range 10-30 ug/mL [address] 03/05/2025 9:19 PM EDT [facility] Alcohol <10 <10 mg/dL [address] 03/05/2025 9:19 PM EDT [facility] Salicylate Level, Blood <5(L) 15 - <30 mg/dL [address] 03/05/2025 9:19 PM EDT [facility] Blood PERIPHERAL BLOOD SPECIMEN / Unknown Venipuncture / Unknown 03/05/2025 8:40 PM EDT 03/05/2025 8:43 PM EDT us Darshan Flood MD LAB BLOOD ORDERABLES Final Resul t Performing Organization Address City/[facility]/ZIP Co de Phone Number [facility] [address] [place] [address], [place] [phone] * (ABNORMAL) Drug Screen, Urine (03/05/2025 8:40 PM EDT) [facility] Amphetamines Screen, Urine Negative Negative 03/05/2025 9:05 PM EDT [facility] Barbiturates Screen, Urine Negative Negative 03/05/2025 9:05 PM EDT [facility] Benzodiazepine Screen, Urine Positive(A) Negative 03/05/2025 9:05 PM EDT [facility] Buprenorphine Screen, Urine Negative Negative 03/05/2025 9:05 PM EDT [facility] Cannabinoids Screen, Urine Negative Negative 03/05/2025 9:05 PM EDT [facility] Cocaine Metabolite Screen, Urine Negative Negative 03/05/2025 9:05 PM EDT [facility] Methadone Screen, Urine Negative Negative 03/05/2025 9:05 PM EDT [facility] Methamphetamine, Urine Negative Negative 03/05/2025 9:05 PM [facility] Opiates Screen, Urine Negative Negative 03/05/2025 9:05 PM [facility] Oxycodone Screen, Urine Positive(A) Negative 03/05/2025 9:05 PM [facility] TCA, Urine Negative Negative 03/05/2025 9:05 PM [facility] Creatinine, John Urine 91.3 No Established Reference Range mg/dL [facility] [id number] 03/05/2025 9:05 PM [facility] Fentanyl Screen, Urine Negative Negative [facility] [id number] 03/05/2025 9:05 PM [facility] Tramadol Screen, Urine Negative Negative [facility] [id number] 03/05/2025 9:05 PM [facility] 6-Aceytlmorphine Screen, Urine Negative Negative [facility] [id number] 03/05/2025 9:05 PM [facility] Phencyclidine Screen, Urine Negative Negative 03/05/2025 9:05 PM [facility] Urine URINE SPECIMEN / Unknown Collection / Unknown 03/05/2025 8:40 PM EDT 03/05/2025 8:42 PM EDT [facility] - 03/05/2025 9:05 PM EDT Specimen analysis [...] absinence. Thresholds are established by the test story analyst. Drug levels below thresholds will be reported as negative. This is an antibody-antigen methods screening test and has the potential for false positive results caused by other drugs, medications and supplements with similar structures, if results are discordant clinically. us Darshan Flood MD URINE ORDERABLES Final Result Performing Organization Address [facility] de Phone Number [address] [address], * Tramadol Screen, Urine (03/05/2025 8:40 PM EDT) Pathologist [facility] Tramadol Screen, Urine Negative Negative [facility] [id number] 03/05/2025 9:03 PM EDT [facility] Comment: Tramadol cutoff is 200 ng/mL Tramadol. Add-on order [id number] Tramadol Confirmation, Urine, if confirmation desired. Results should be used for medical purposes only and not for any legal or employment evaluative purposes. Urine URINE SPECIMEN / Unknown Collection / Unknown 03/05/2025 8:40 PM EDT 03/05/2025 8:42 PM EDT us Darshan Flood MD URINE ORDERABLES Final Result Performing Organization Address [facility] Phone Number [address] [address], [place] [phone] * Fentanyl Screen, Urine (03/05/2025 8:40 PM EDT) Pathologist [facility] Fentanyl Screen, Urine Negative Negative [facility] [id number] 03/05/2025 9:03 PM EDT [facility] Urine URINE SPECIMEN / Unknown Collection / Unknown 03/05/2025 8:40 PM EDT 03/05/2025 8:42 PM EDT us Darshan Flood MD URINE ORDERABLES Final Result Performing Organization Address [facility] Phone Number [address] [address], [place] [phone] * (ABNORMAL) Basic Metabolic Panel (03/05/2025 8:40 PM EDT) Sodium 139 134 - 144 mmol/L [address] 03/05/2025 9:19 PM EDT [facility] Potassium 4.1 3.2 - 5.1 mmol/L [address] 03/05/2025 9:19 PM EDT [facility] Comment:Samples tested in se rum may exhibit a higher potassium value than those tested on plasma. Our current range is based on plasma testing. Chloride 103 97 - 109 mmol/L [address] 03/05/2025 9:19 PM EDT [facility] Total CO2/Bicarbonat e 28 20 - 32 mmol/L [address] 03/05/2025 9:19 PM EDT [facility] Anion Gap 8 5 - 15 mmol/L [address] 03/05/2025 9:19 PM EDT [facility] Anion Gap [address] 03/05/2025 9:19 PM EDT [facility] BUN 14 9 - 26 mg/dL [address] 03/05/2025 9:19 PM EDT [facility] Creatinine, Blood 1.43(H) 0.70 - 1.30 mg/dL [address] 03/05/2025 9:19 PM EDT [facility] Glucose, Blood 97 70 - 110 mg/dL [address] 03/05/2025 9:19 PM EDT [facility] Calcium 9.4 8.5 - 10.5 mg/dL [address] 03/05/2025 9:19 PM EDT [facility] Estimated GFR (MDRD) 58(L) >=60 mL/min/BSA [address] 03/05/2025 9:19 PM EDT [facility] Blood PERIPHERAL BLOOD SPECIMEN / Unknown Venipuncture / Unknown 03/05/2025 8:40 PM EDT 03/05/2025 8:43 PM EDT Darshan Flood MD LAB BLOOD ORDERABLES Final Resul t [facility] [address] [place] [address], from Last 3 Months Care Teams It Systems Analyst Relationship Specialty Start Date End Date Terry Green MD [address] [address] PCP - General Internal Medicine 03/05/25
--- OUTSIDE RECORDS SUMMARY | 2025-03-07 18:48 | XMS_ITS | Encounter Summary ---
Author Organization Alexa Salguero [facility] Address [address] [place] [address] Care Team Providers Care Special Event Assistant Name Role Phone Terry Green MD Primary Care Provider [phone] Encounter Details Date Type Department Care Team (Latest Contact Info) Description 03/05/2025 Travel Social History Tobacco Use Types Packs/Day Years Used Date Smoking Tobacco: Never Assessed Sex and Gender Information Value Date Recorded Sex Assigned at Male 03/05/2025 7:48 PM EDT Legal Sex Male 3:43 PM EDT Gender Identity Male 03/05/2025 11:21 PM EDT Sexual Orientation Not on file documented as of this encounter Plan of Treatment Not on file documented as of this encounter Visit Diagnoses Not on filedocumented in this encounter Care Teams Special Event Assistant Relationship Specialty Start Date End Date Terry Green MD [address] [place] [id number] PCP - General Internal Medicine 03/05/25 documented as of this encounter
--- OUTSIDE RECORDS SUMMARY | 2025-03-07 18:48 | XMS_ITS | Patient Health Record ---
Author Organization Terry Green MD [facility] Address [address] [address] Care Team Providers Care Casket Trimmer Name Role Phone Terry Green Primary Care Provider JossueClaudio ram Unavailable [phone] Donna, Shaila Unavailable [phone] Allergies Allergen (clinical drug ingredient) Drug/Non Drug Allergy documented on EMR Reaction Allergy Type Onset Date Status LEVAQUIN (uncoded) Unknown Allergy A ctive Results Component Value Reference Range Flag Notes COMPREHENSIVE METABOLIC PANE L (42391) Reviewed date:09/14/2024 07:52:04 AM Interpretation: Performing Lab: Notes/Report: NON-FASTING FASTING:UNKNOWN FASTING: UNKNOWN GLUCOSE 85 65-99 mg/dL N Fasting reference interval UREA NITROGEN (BUN) 16 7-25 mg/dL N CREATININE 1.23 0.60-1.26 mg/dL N EGFR 80 > OR = 60 mL/min/1.73m2 N BUN/CREATININE RATIO SEE NOTE: 6-22 (calc) Not Reported: BUN and Creatinine are within reference range. SODIUM 138 135-146 mmol/L N POTASSIUM 3.7 3.5-5.3 mmol/L N CHLORIDE 100 98-110 mmol/L N CARBON DIOXIDE 27 20-32 mmol/L N CALCIUM 9.7 8.6-10.3 mg/dL N PROTEIN, TOTAL 7.4 6.1-8.1 g/dL N ALBUMIN 4.9 3.6-5.1 g/dL N GLOBULIN 2.5 1.9-3.7 g/dL (calc) N ALBUMIN/GLOBULIN RATIO 2.0 1.0-2.5 (calc) N BILIRUBIN, TOTAL 0.5 0.2-1.2 mg/dL N ALKALINE PHOSPHATASE 79 36-130 U/L N AST 30 10-40 U/L N ALT 25 9-46 U/L N *Urine Reviewed date:09/13/2024 03:28:09 PM Interpretation: Performing Lab: Notes/Report: GLU NEG TRACEY NEG KET TRACE SG 1.015 PH 7.0 BLO MODERATE KEYANA SMALL PRO 30 MG/dL URO 0.2 E.U / dL NIT NEG URINALYSIS, COMPLETE W/REFLE X TO CULTURE (3020) Reviewed date:09/15/2024 08:08:03 AM Interpretation: Performing Lab: Notes/Report: NON-FASTING NON-FASTING NON-FASTING FASTING:UNKNOWN FASTING:UNKNOWN FASTING:UNKNOWN FASTING: UNKNOWN FASTING: UNKNOWN FASTING: UNKNOWN COLOR YELLOW YELLOW N APPEARANCE CLEAR CLEAR N SPECIFIC GRAVITY 1.019 1.001-1.035 N PH 6.5 5.0-8.0 N GLUCOSE NEGATIVE NEGATIVE N BILIRUBIN NEGATIVE NEGATIVE N KETONES TRACE NEGATIVE A OCCULT BLOOD 2+ NEGATIVE A PROTEIN TRACE NEGATIVE A NITRITE NEGATIVE NEGATIVE N LEUKOCYTE ESTERASE 2+ NEGATIVE A WBC 20-40 < OR = 5 /HPF A RBC 40-60 < OR = 2 /HPF A SQUAMOUS EPITHELIAL CELLS NONE SEEN < OR = 5 /HPF N BACTERIA NONE SEEN NONE SEEN /HPF N HYALINE CAST NONE SEEN NONE SEEN /LPF N NOTE This urine was analyzed for the presence of WBC, RBC, bacteria, casts, and other formed elements. Only those elements seen were reported. REFLEXIVE URINE CULTURE C ULTURE INDICATED - RESULTS TO FOLLOW CULTURE, URINE, ROUTINE SEE NOTE CULTURE, URINE, ROUTINE Micro Number: [id number] Test Status: Final Specimen Source: Urine Specimen Quality: Adequate Result: No Growth CBC (INCLUDES DIFF/PLT) ([id number]) Reviewed date:09/14/2024 07:52:04 AM Interpretation: Performing Lab: Notes/Report: NON-FASTING FASTING:UNKNOWN FASTING: UNKNOWN WHITE BLOOD CELL COUNT 8.7 3.8-10.8 Thousand/uL N RED BLOOD CELL COUNT 4.67 4.20-5.80 Million/uL N HEMOGLOBIN 14.3 13.2-17.1 g/dL N HEMATOCRIT 42.2 38.5-50.0 % N MCV 90.4 80.0-100.0 fL N MCH 30.6 27.0-33.0 pg N MCHC 33.9 32.0-36.0 g/dL N For adults, a slight decrease in the calculated MCHC value (in the range of 30 to 32 g/dL) is most likely not clinically significant; however, it should be interpreted with caution in correlation with other red cell parameters and the patient's clinical condition. RDW 12.6 11.0-15.0 % N PLATELET COUNT 350 140-400 Thousand/uL N MPV 9.4 7.5-12.5 fL N ABSOLUTE NEUTROPHILS [phone] cells/uL N ABSOLUTE LYMPHOCYTES 1477 511-5879 cells/uL N ABSOLUTE MONOCYTES 487 200-950 cells/uL N ABSOLUTE EOSINOPHILS 26 15-500 cells/uL N ABSOLUTE BASOPHILS 44 0-200 cells/uL N NEUTROPHILS 73 N LYMPHOCYTES 20.6 N MONOCYTES 5.6 N EOSINOPHILS 0.3 N BASOPHILS 0.5 N COMPREHENSIVE METABOLIC PANE L ([id number]) Reviewed date:01/16/2025 09:10:28 AM Interpretation: Performing Lab:NL2, [facility] [address] Mauri Ozuna Notes/Report: NON-FASTING; NON-FASTING; NON-FASTING FASTING:NO FASTING: NO GLUCOSE 87 65-139 mg/dL N Non-fasting reference interval UREA NITROGEN (BUN) 16 7-25 mg/dL N CREATININE 1.20 0.60-1.26 mg/dL N EGFR 83 > OR = 60 mL/min/1.73m2 N BUN/CREATININE RATIO SEE NOTE: 6-22 (calc) Not Reported: BUN and Creatinine are within reference range. SODIUM 139 135-146 mmol/L N POTASSIUM 4.1 3.5-5.3 mmol/L N CHLORIDE 102 98-110 mmol/L N CARBON DIOXIDE 25 20-32 mmol/L N CALCIUM 9.5 8.6-10.3 mg/dL N PROTEIN, TOTAL 7.5 6.1-8.1 g/dL N ALBUMIN 4.7 3.6-5.1 g/dL N GLOBULIN 2.8 1.9-3.7 g/dL (calc) N ALBUMIN/GLOBULIN RATIO 1.7 1.0-2.5 (calc) N BILIRUBIN, TOTAL 0.4 0.2-1.2 mg/dL N ALKALINE PHOSPHATASE 81 36-130 U/L N AST 43 10-40 U/L H ALT 44 9-46 U/L N CBC (INCLUDES DIFF/PLT) (639 9) Reviewed date:01/16/2025 09:10:29 AM Interpretation: Performing Lab:NL2, [facility] Eanpaola Anny Ozuna Notes/Report: NON-FASTING; NON-FASTING; NON-FASTING FASTING:NO FASTING: NO WHITE BLOOD CELL COUNT 7.7 3.8-10.8 Thousand/uL N RED BLOOD CELL COUNT 4.79 4.20-5.80 Million/uL N HEMOGLOBIN 14.6 13.2-17.1 g/dL N HEMATOCRIT 44.7 38.5-50.0 % N MCV 93.3 80.0-100.0 fL N MCH 30.5 27.0-33.0 pg N MCHC 32.7 32.0-36.0 g/dL N For adults, a slight decrease in the calculated MCHC value (in the range of 30 to 32 g/dL) is most likely not clinically significant; however, it should be interpreted with caution in correlation with other red cell parameters and the patient's clinical condition. RDW 12.3 11.0-15.0 % N PLATELET COUNT 323 140-400 Thousand/uL N MPV 9.1 7.5-12.5 fL N ABSOLUTE NEUTROPHILS 5121 5805-4072 cells/uL N ABSOLUTE LYMPHOCYTES 4830 908-0302 cells/uL N ABSOLUTE MONOCYTES 439 200-950 cells/uL N ABSOLUTE EOSINOPHILS 108 15-500 cells/uL N ABSOLUTE BASOPHILS 54 0-200 cells/uL N NEUTROPHILS 66.5 N LYMPHOCYTES 25.7 N MONOCYTES 5.7 N EOSINOPHILS 1.4 N BASOPHILS 0.7 N URINALYSIS, COMPLETE W/REFLE X TO CULTURE (3020) Reviewed date:01/16/2025 09:10:29 AM Interpretation: Performing Lab:[facility] Eanpaola Anny Ozuna Notes/Report: NON-FASTING; NON-FASTING; NON-FASTING FASTING:NO FASTING: NO NON-FASTING; NON-FASTING; NON-FASTING FASTING:NO FASTING: NO NON-FASTING; NON-FASTING; NON-FASTING FASTING:NO FASTING: NO COLOR YELLOW YELLOW N APPEARANCE CLOUDY CLEAR A SPECIFIC GRAVITY 1.012 1.001-1.035 N PH 8.0 5.0-8.0 N GLUCOSE NEGATIVE NEGATIVE N BILIRUBIN NEGATIVE NEGATIVE N KETONES NEGATIVE NEGATIVE N OCCULT BLOOD 3+ NEGATIVE A PROTEIN TRACE NEGATIVE A NITRITE NEGATIVE NEGATIVE N LEUKOCYTE ESTERASE 1+ NEGATIVE A WBC 0-5 < OR = 5 /HPF N RBC 3-10 < OR = 2 /HPF A SQUAMOUS EPITHELIAL CELLS NONE SEEN < OR = 5 /HPF N BACTERIA NONE SEEN NONE SEEN /HPF N HYALINE CAST 0-5 NONE SEEN /LPF A NOTE This urine was analyzed for the presence of WBC, RBC, bacteria, casts, and other formed elements. Only those elements seen were reported. REFLEXIVE URINE CULTURE C ULTURE INDICATED - RESULTS TO FOLLOW CULTURE, URINE, ROUTINE SEE NOTE A CULTURE, URINE, ROUTINE Micro Number: [id number] Test Status: Final Specimen Source: Urine Specimen Quality: Adequate Result: 10,000-49,000 CFU/mL of Group B Streptococcus isolated Beta-hemolytic streptococci are predictably susceptible to Penicillin and other beta-lactams. Susceptibility testing not routinely performed. Please contact the laboratory within 3 days if susceptibility testing is desired. TSH (899) Reviewed date:01/16/2025 09:10:29 AM Interpretation: Performing Lab:NL2, [facility] Mauri Ozuna Notes/Report: NON-FASTING; NON-FASTING; NON-FASTING FASTING:NO FASTING: NO TSH 0.65 0.40-4.50 mIU/L N TEST AUTHORIZATION Reviewed date:01/16/2025 09:10:29 AM Interpretation: Performing Lab:NL2, [facility] Mauri Ozuna Notes/Report: NON-FASTING; NON-FASTING; NON-FASTING FASTING:NO FASTING: NO TEST NAME: TSH TEST CODE: 899SB CLIENT CONTACT: KAVIN Bang REPORT ALWAYS MESSAGE SIGNATURE The laboratory testing on this patient was verbally requested or confirmed by the ordering physician or his or her authorized field support representative after contact with an employee of [facility]. Federal regulations require that we maintain on file written authorization for all laboratory testing. Accordingly we are asking that the ordering physician or his or her authorized field support representative sign a copy of this report and promptly return it to the client service coordinator. Signature: COMMENT Please fax this signed form to [phone]. Please do not attempt to return this document by other methods. Documents will not be viewed by a field support representative. Please do not use this fax number for other service requests. Reason For Referral No Information Medications Medication SIG (Take, Route, Frequency, Duration) Notes Start Date End Date Status SEROquel 25 MG Tablet 1 tablet at bedtime Orally as directed; Duration: 30 days TAPERING OFF 10/14/2021 Not-Taking/PRN Sertraline HCl 50 MG Tablet 1 tablet Orally Once a day; Duration: 60 days 02/08/2021 Not-Taking/PRN Sertraline HCl 100 MG Tablet 1 tablet Orally Once a day; Duration: 90 days 05/06/2022 Not-Taking/PRN Multivitamin Adult - Tablet 1 tablet Orally Once a day; Duration: 30 days 12/29/2022 Not-Taking/PRN Multivitamin Adult - Tablet 1 tablet Orally Once a day Not-Taking/PRN Immunizations Vaccine Route Administration Date Status Comme nts H1N1 SC Subcutaneous 04/03/2009 Administered Tdap (115) SC Subcutaneous 03/10/2013 Administered Social History Tobacco Use: Social History Observation Description Date Details (start date - stop date) Light tobacco brian kimball NA Justina NA Social History Tobacco Use: Social Info Question Answer Notes Smoking Cessation: Patient counseled on the dangers of Tobacco Use 10/14/2021 Smoking: Are you a: light tobacco smoker Additional Details Category Social Info Options Details General Alcohol: yes years Smoking: yes vapes Exercise: yes Diet: no Seat Belt Use yes sometimes Drugs no Problems Problem Type SNOMED Code ICD Code Onset Dates Problem Status W/U Status Risk Notes Problem Hyperlipidemia (58353648) Hyperlipidemia, unspecified (E78.5) Active confirmed Problem Generalized anxiety disorder (69402109) Generalized anxiety disorder (F41.1) Active confirmed Problem Nephrolithiasis (00486340) Nephrolithiasis (N20.0) Active confirmed Problem Posttraumatic stress disorder (73092606) PTSD (post-traumatic stress disorder) (F43.10) Active confirmed Problem Chronic fatigue syndrome (92821187) Chronic fatigue (R53.82) Active confirmed Problem Opioid abuse (7933692) Opiate abuse, continuous (F11.10) Active confirmed Problem Hypercholesterolemia (76991512) Hypercholesterolemia (E78.00) Active confirmed Problem Opioid abuse (3635020) Opiate abuse, episodic (F11.10) Active confirmed Problem Moderate recurrent major depression (29672920) Moderate episode of recurrent major depressive disorder (F33.1) Active confirmed Problem Panic disorder (324609459) Panic disorder [episodic paroxysmal anxiety] (F41.0) Active confirmed Problem Drug intoxicatio n without complication (F19.920) Active confirmed Problem Insomnia disorder related to another mental disorder (79761686) Psychophysiological insomnia (F51.04) Active confirmed Vital Signs Heart Rate 78 /min 01/12/2025 Blood pressure diastolic 74 mm Hg 01/12/2025 Height 69 in 01/12/2025 Blood pressure systolic 118 mm Hg 01/12/2025 Weight 156 lbs 01/12/2025 BMI 23.03 kg/m2 01/12/2025 Encounters Encounter Location Date Provider Diagnosis Terry Green MD [address] [address] 09/13/2024 Shaila Thompson Nephrolithiasis N20. 0 and Flank pain, acute R10.9 Terry Green MD [address] [address] 01/12/2025 [facility] Financial insecurity Z59.86 ; Annual physical exam Z00.00 ; Food insecurity Z59.41 ; Transportation insecurity Z59.82 ; Housing instability Z59.819 ; Opiate abuse, continuous F11.10 ; Generalized anxiety disorder F41.1 ; Panic disorder [episodic paroxysmal anxiety] F41.0 ; PTSD (post-traumatic stress disorder) F43.10 ; Psychophysiological insomnia F51.04 ; Hypercholesterolemia E78.00 and Pharyngitis J02.9 Terry Green MD [address] [address] 05/18/2024 Terry Green MD [address] [address] 09/13/2024 Terry Green MD [place] [address] [address] [address] 09/14/2024 Terry Green MD [address] [place] [address] 12/15/2024 Terry Green MD [place] [address] [place] [address] 01/13/2025 Terry Green Chronic fatigue R53.82 Terry Green MD [place] [address] [place] [address] [address] 01/16/2025 Terry Green MD [address] [place] [address] 03/02/2025 Terry Green Assessments Encounter Date Diagnosis (ICD Code) Assessment Notes Treatment Notes Treatment Clinical Notes Section Notes 09/13/2024 Nephrolithiasis (ICD -10 - N20.0) Strongly recommended STAT CT today to rule out obstructing stone. He declinesat this time, he is aware of the risks. Wants us to schedule this outpatient. Will do labs and UA today. Call if symptoms worsen or fail to improve. Patient educated on when to call the office or seek medical attention including fevers, N/V worsening pain or changes in urinary habits 09/13/2024 Flank pain, acute (ICD-10 - R10.9) 01/12/2025 Annual physical exam (ICD-10 - Z00.00) Going to check his labs today. Discussed getting a thyroid u/s for his sore throat but he declines. Offered to check HIV/Hep C labs given his history of substance abuse and lack of ability to gain weight but he declined this. Aware of the risks. Discussed following with his psychiatrist. Discussed starting an antianxiety with Dr Laboy but we will defer to psychiatry. Congratulated him on his sobriety. 01/12/2025 Financial insecurity (ICD-10 - Z59.86) The patient was provided with the following: Community Resources: [employer]. The patient/guardian provided verbal consent to receive information on resources, share their contact information through the [employer] system, and are aware the agency will reach out to them based on their preferred method. 01/13/2025 Chronic fatigue (ICD -10 - R53.82) 01/12/2025 Food insecurity (ICD -10 - Z59.41) The patient was provided with the following: Community Resources: [email or web address]. The patient/guardian provided verbal consent to receive information on resources, share their contact information through the [employer] system, and are aware the agency will reach out to them based on their preferred method. 01/12/2025 Transportation insecurity (ICD-10 - Z59.82) The patient was provided with the following: Community Resources: [email or web address]. The patient/guardian provided verbal consent to receive information on resources, share their contact information through the [employer] system, and are aware the agency will reach out to them based on their preferred method. 01/12/2025 Housing instability (ICD-10 - Z59.819) The patient was provided with the following: Community Resources: [email or web address]. The patient/guardian provided verbal consent to receive information on resources, share their contact information through the [employer] system, and are aware the agency will reach out to them based on their preferred method. 01/12/2025 Opiate abuse, continuous (ICD-10 - F11.10) 01/12/2025 Generalized anxiety disorder (ICD-10 - F41.1) 01/12/2025 Panic disorder [episodic paroxysmal anxiety] (ICD-10 - F41.0) 01/12/2025 PTSD (post-traumatic stress disorder) (ICD-10 - F43.10) 01/12/2025 Psychophysiological insomnia (ICD-10 - F51.04) 01/12/2025 Hypercholesterolemia (ICD-10 - E78.00) 01/12/2025 Pharyngitis (ICD-10 - J02.9) Plan Of Treatment Pending Test Test Name Order Date CT ABDOMEN PELVIS WO CONTRAST 09/13/2024 TSH (899) 01/13/2025 Next Appt Details Provider Name:Terry vargas, 03/15/2025 03:00:00 PM, [address] [place] [address], Suite [facility], [place], [address], Provider Name:Claudio ram, 01/19/2026 08:00:00 AM, [address] [place] [address], [address], [place], [address], Insurance Providers Payer Name Payer Address Payer Phone Subscriber Number Group Number Insured Name Patient Relationship to Insured Coverage Start Date Coverage End Date [facility] [address] [place] [address] [phone] [id number] EMILY WILLIAM Self - patient is the insured 2 [facility] [address] [place] [address] [id number] EMILY WILLIAM Self - patient is the insured Medical (General) History Surgical History Surgery Date(Month/Year)
[2025-03-07 19:56] VITALS: BP 123/81; PULSE 88; RESP 20; TEMP 38.2; O2SAT 97
[2025-03-08 08:21] VITALS: BP 119/76; PULSE 86; RESP 16; TEMP 36.7; O2SAT 97
--- NOTE | 2025-03-08 08:40 | P.CONHOSP_ITS ---
History of Present Illness Data of Consult Service Date: 03/08/25 Primary Care Provider: Unknown Physician HPI Reason for consult: Medical management 29-year-old male with past medical history of anxiety, PTSD, substance use disorder, and suicidal ideation who was brought in by ambulance [place] home [place] [address] [place] [address] [place] after girlfriend called EMS reporting that patient was taking anxiety meds off the street and subsequently locked himself in the bathroom and came out with belt williamson on his neck consistent with a suicide attempt. His initial workup included normal electrolytes, an elevated creatinine 1.4. Tox screen Positive benzos positive oxycodone. CBC without leukocytosis or anemia. While in the ED patient heard making loud noises social security was called and a small bag of blue-clark pills were confiscated. On exam he denies any medical concerns. Review of Systems Review of Systems: Denies any shortness of breath, chest pain, headaches, dysuria, abdominal pain or discomfort, nausea, vomiting or diarrhea. Denies fever or chills. PMFSH Social History Household Members: Significant Other Housing: Apartment Do you presently have visiting nurse or other home services: No Patient Tobacco Use Status: Current everyday Tobacco user Tobacco use type: Smokeless Tobacco Years Smoked: 6 years Smoked in Last 30 Days: Yes e-Cigarette/Vaping Use: Currently Using Frequency of e-Cigarette/Vaping Use: 50-75 times daily Patient Interested in Nicotine Replacement: Yes (patch and gum) Patient Given Instructions on How to Stop Smoking: No (declined) Second Hand Smoke Exposure: No Currently Displaying Signs/Symptoms of Drug Intoxication Withdrawal: Yes (CIWA) Have you been hit, kicked, punched, or otherwise hurt by someone within the past year? If so, by whom?: No Do you feel safe in your current relationship?: Yes Is there a partner from a previous relationship who is making you feel unsafe now?: No Are you made to feel afraid or neglected: No Advance Directives: No Advance Directives Information Provided: Yes Do you have thoughts of harming others: None Do you have a plan to hurt others: No Plan Recently lost weight without trying: No Eating poorly because of decreased appetite: No Nutrition Risks: No Nutritional Risk Poor oral hygiene: No service: No Sexual orientation: Straight/Heterosexual Meds Allergies Allergy/AdvReac Type Severity Reaction Status Date / Time levofloxacin Allergy Unknown Unknown Verified 03/07/25 13:01 Active Medications: Current Medications Acetaminophen (Acetaminophen 325 Mg Tablet) 650 mg PO Q6H PRN PRN Reason: Headache/Pain, Scale 1-10 Al Hydroxide/Mg Hydroxide (Magnesium Hydrox/Alum Hydrox 30 Ml Oral.Susp) 30 ml PO Q6H PRN PRN Reason: Heartburn/Nausea Folic Acid (Folic Acid 1 Mg Tablet) 1 mg PO DAILY [facility] Last Admin: 03/08/25 08:25 Dose: 1 mg Hydroxyzine HCl (Hydroxyzine Hcl 25 Mg Tablet) 25 mg PO Q6H PRN PRN Reason: mild anxiety Last Admin: 03/07/25 22:00 Dose: 25 mg Lorazepam (Lorazepam 1 Mg Tablet) 1 mg PO Q2H PRN PRN Reason: ciwa 6-10 Lorazepam (Lorazepam 1 Mg Tablet) 2 mg PO Q2H PRN PRN Reason: ciwa 11+ Last Admin: 03/08/25 00:12 Dose: 2 mg Magnesium Hydroxide (Milk Of Magnesia 30 Ml Oral.Susp) 30 ml PO DAILY PRN PRN Reason: Constipation Melatonin (Melatonin 3 Mg Tablet) 9 mg PO BEDTIME [facility] Last Admin: 03/07/25 22:00 Dose: 9 mg Melatonin (Melatonin 3 Mg Tablet) 3 mg PO BEDTIME PRN PRN Reason: Insomia Multivitamins/Vitamin C (Multivitamin Tablet) 1 tab PO DAILY [facility] Last Admin: 03/08/25 08:25 Dose: 1 tab Nicotine Polacrilex (Nicotine Polacrilex 2 Mg Gum) 4 mg BUCCAL Q2H PRN PRN Reason: Nicotine Cravings Last Admin: 03/08/25 00:11 Dose: 4 mg Thiamine HCl (Thiamine Hcl 100 Mg Tablet) 100 mg PO DAILY [facility] Last Admin: 03/08/25 08:24 Dose: 100 mg Home Medications ?Medication ?Instructions ?Recorded ?Confirmed ?Last Taken ?Type clonidine HCl 0.1 mg tablet 0.05 - 0.1 mg PO DAILY PRN anxiety 03/07/25 03/07/25 Unknown History attack Physical Exam Vital Signs and Narrative: Vital Signs: Last Vital Signs Temp 98.0 F 03/08/25 08:21 Pulse 86 03/08/25 08:21 Resp 16 03/08/25 08:21 BP 119/76 03/08/25 08:21 Pulse Ox 97 03/08/25 08:21 O2 Del Method Room Air 03/08/25 08:21 BMI result Body Mass Index 20.2 Alert and oriented X3, able to give good history. Neuro: CN II-X11 intact, no deficits, visual acuity intact EYES: PERRLA, EOM intact ENT: Hearing intact, lips moist Cardiac: S1 S2 RRR, No ectopy Pulmonary: lungs clear to auscultation, No increased WOB. Abdominal: BS active in all 4 quadrants, no guarding or tenderness MSK: Strength 5/5 upper and lower extremities : Deferred Extremities: No edema in lower extremities Psych: Mood stable, Quiet and cooperative. Skin: Warm and dry, Intact Assessment and Plan (1) PTSD (post-traumatic stress disorder): Status: Acute Plan 29-year-old male with a past medical history listed below presents to the ED with suicide attempt. He is now being treated on inpatient psych for further stabilization. Substance use disorder/PTSD/anxiety Treatment per psychiatric team Thank you for allowing me to participate in the care of this patient. Will follow with you, please notify medical provider with any changes in condition or concerns.
--- NOTE | 2025-03-08 09:14 | P.HPPS_ITS ---
HPI Date of Service: 03/08/25 Chief Complaint: PTSD, Polysubstance Use D/O,SI attempt via hanging Sources of Information: patient interviewed and chart reviewed HPI Subjective Notes: Zuñiga Warning, Conditional Voluntary and 3 Day Healthcare Proxy: No Guardianship: No Medical Problems Affecting Mental Status: No Narrative: 29-year-old male who is a transfer from [facility] ED to [facility] behavioral health yesterday for suicide attempt. Per report, upon arriving to his home, police officers observed patient with a belt around his neck with visible ligature williamson consistent with self strangulation. On interview with his provider, patient notes that his girlfriend called the police after she thoughts he was trying to kill himself. He states that he locked himself in the bathroom to take some Klonopin tablet by mouth. However, he did not get a chance to take any tablet before the police arrived. Reports increased anxiety and stress since he found out his girlfriend was 8 weeks ago. He started thinking about the fact that he has a 6-year-old son whom he has not seen for the past 3 years. His son lives with the son's mother in [place]. He is also considering the fact that he and his girlfriend and currently financially stable. He has not been off fentanyl for 10 month and not a year, and his girlfriend has been sober from only recently. Also, he has only known his girlfriend for 7 months. All those factors made the patient thinks that now is not the right time to have a child. Due to significant anxiety and stress, he bought 105, 1 mg Klonopin tablets to treat his symptoms. He took approximately 10 mg of Klonopin daily within 12 consecutive days (last day was 03/05/2025). He states that the medication helped with his anxiety and stress but was not sustainable. The medications provided short-term relief. Sleep has also been an issue - he has trouble staying asleep, but attributes that to history of substance use. He takes Benadryl and melatonin with some improvement. He states that it was like a Band-Aid. He mentions that prior to his current symptoms, he was stable at baseline with routine stressors. He notes that he tried Buspirone in the past without relief of his anxiety symptoms. He has never been on antidepressants and adamantly refuses trial of an antidepressant. He reports mild anxiety at this time and denies depression. He denies history of hopelessness, helplessness, worthlessness, or anhedonia. He denies SI/HI/AH/VH. Denies official diagnosis of mental illness but reports anxiety, PTSD, and substance use disorder. He states that he was recently on prescribed oxycodone for dental pain. He denies recent fentanyl or street required opiate use. He denies alcohol use since April 2024. He vapes nicotine once weekly. His goal for this admission is to get connected with a therapist and psychiatrist closer to his home. Patient seen at 10:00 on 03/08/2025. 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 deployment Substance History: Recently used Klonopin 10mg daily within 12 days History of fentanyl use intranasally since 2019 with on and off sobriety, last use was 02/2024 History of binge drinking, last drink was 04/2024 Tox screen positive for Benzos and Oxycodone Trauma History: Reports trauma history but declines to disclose Diagnostics Vital Signs (24Hr): Vital Signs - 24 hr 03/07/25 15:30 03/07/25 19:56 03/08/25 08:21 Temperature 97.7 F 100.8 F H 98.0 F Pulse Rate 65 88 86 Respiratory Rate 16 20 16 Blood Pressure 135/72 123/81 119/76 Pulse Oximetry 98 97 97 Oxygen Delivery Method Room Air Room Air Room Air BMI result Body Mass Index 20.2 Meds/Allergies Meds Home Medications ?Medication ?Instructions ?Recorded ?Confirmed ?Type clonidine HCl 0.1 mg tablet 0.05 - 0.1 mg PO DAILY PRN anxiety 03/07/25 03/07/25 History attack Allergies Allergies Allergy/AdvReac Type Severity Reaction Status Date / Time levofloxacin Allergy Unknown Unknown Verified 03/07/25 13:01 Mental Status Exam Mental Status Exam Narrative: Appearance: Casually dressed, adequate Behavior: Calm and cooperative throughout the interview. Intermittent eye contact, and there are no signs of psychomotor agitation or retardation Speech: Normal volume and prosody Thought process: Logical and goal-directed Thought content: Future oriented no self-harming thoughts Mood: Anxious Affect: Constricted SI:denies HI:denies VH/AH:none Delusions: None Insight/judgment: Impaired insight and judgment Memory/cog: Alert, oriented x 4. grossly intact to conversational testing Assessment & Plan Assessment & Plan (1) Anxiety: Status: Acute Code(s): F41.9 - Anxiety disorder, unspecified (2) PTSD (post-traumatic stress disorder): Status: Acute Code(s): F43.10 - Post-traumatic stress disorder, unspecified (3) Substance use: Status: Acute Code(s): F19.90 - Other psychoactive substance use, unspecified, uncomplicated Plan 29-year-old male who is a transfer from [facility] ED to [facility] behavioral health yesterday for suicide attempt. Per report, upon arriving to his home, police officers observed patient with a belt around his neck with visible ligature williamson consistent with self strangulation. On interview with his provider, patient notes that his girlfriend called the police after she thoughts he was trying to kill himself. He states that he locked himself in the bathroom to take some Klonopin tablet by mouth. However, he did not get a chance to take any tablet before the police arrived. Reports increased anxiety and stress since he found out his girlfriend was 8 weeks ago. He started thinking about the fact that he has a 6-year-old son whom he has not seen for the past 3 years. His son lives with the son's mother in [place]. He is also considering the fact that he and his girlfriend and currently financially stable. He has not been off fentanyl for 10 month and not a year, and his girlfriend has been sober from only recently. Also, he has only known his girlfriend for 7 months. All those factors made the patient thinks that now is not the right time to have a child. Due to significant anxiety and stress, he bought 105, 1 mg Klonopin tablets to treat his symptoms. He took approximately 10 mg of Klonopin daily within 12 consecutive days (last day was 03/05/2025). He states that the medication helped with his anxiety and stress but was not sustainable. The medications provided short-term relief. Sleep has also been an issue - he has trouble staying asleep, but attributes that to history of substance use. He takes Benadryl and melatonin with some improvement. He states that it was like a Band-Aid. He mentions that prior to his current symptoms, he was stable at baseline with routine stressors. He notes that he tried Buspirone in the past without relief of his anxiety symptoms. He has never been on antidepressants and adamantly refuses trial of an antidepressant. He reports mild anxiety at this time and denies depression. He denies history of hopelessness, helplessness, worthlessness, or anhedonia. He denies SI/HI/AH/VH. Denies official diagnosis of mental illness but reports anxiety, PTSD, and substance use disorder. He states that he was recently on prescribed oxycodone for dental pain. He denies recent fentanyl or street required opiate use. He denies alcohol use since April 2024. He vapes nicotine once weekly. His goal for this admission is to get connected with a therapist and psychiatrist closer to his home. Formulation/Clinical reasoning: Anxiety: Psychosocial stressors, undisclosed trauma, and self treatment with Klonopin may exacerbate the patient's symptoms. He is currently mildly depressed. No depression. No SI/HI/AVH. He is not interested in medication treatment at this time. His goal for this admission is to connect with a therapist and psychiatrist closer to his home. Encouraged to take p.r.n. medications. Will continue to monitor. Verbalized understanding and agreed with the plan. He signed a 3 day notice which expires next Thursday. He is on CIWA protocol for benzo withdrawal. CIWA scores today: 0/9/10/8. Plan Admit to M5. CV 15 minutes check. Diagnostics as needed. Collateral contact. Continue remainder of regime. Encouraged full milieu. Discharge planning. Patient educated on: diagnosis, medication risk/benefits and therapeutic strategies Reason for continued inpatient stay Substantial Risk for: harm to self and rapid decompensation Statement Statement: I have reviewed the history and physical and performed a pertinent examination on my patient. No changes have occurred unless specified. If the History and Physical was not performed prior to admission, the Hospitalist's service will be consulted for completing the admission physical. Time Spent With Patient Time: Total time managing care of this patient today ____ minutes.
[2025-03-08] MEDS: Nicotine 21 MG PATCH.TD24 TRANSDERMA (16:42)
--- NOTE | 2025-03-08 16:52 | MHC.RECOVRN ---
Consult placed to Addiction Medicine for non-prescribed Klonopin and Ativan use.? Pt reports he started using fentanyl pills in 2019 as he was unable to purchase oxycodone from his supplier. He reports numerous ATS and CSS admissions from [id number], most recently admitted to [facility] in April of 2025? He reports declining to be initiated on MAT, however felt encouraged by providers as he was not eating or engaging in treatment due to withdrawal symptoms. Pt then agreed to start Suboxone 8mg and transitioned to Sublicade, and received 1 injection in July of 2024.? Pt states he has been buying prescriptions for Oxycodone, Klonopin, and Ativan from several ?trusted?? individuals since January of 2025. He states his use has increased due to life stressors including recently learning his partner of 7 months is , anxiety regarding the future and feelings of being unworthy. Pt reports utilizing several recovery coaches in the past and attending AA/NA He denies having a sponsor or other recovery supports Pt provided written resources and education regarding pressed pills, SMART recovery and other pathways to recovery, as well as harm reduction education. Pt provided TW contact information for further questions or concerns which he denies at this time.?
--- NOTE | 2025-03-08 18:11 | PC.NURSE ---
3 day notice submitted and up on 03/13/25; treatment team notified.
[2025-03-08 20:00] VITALS: BP 105/75; PULSE 104; RESP 18; TEMP 36.8; O2SAT 99
[2025-03-09 08:00] VITALS: BP 141/74; PULSE 140; RESP 16; TEMP 36.3; O2SAT 94
[2025-03-09] MEDS: Nicotine 21 MG PATCH.TD24 TRANSDERMA (08:49)
--- NOTE | 2025-03-09 09:05 | HO.PSYCHPN ---
Subjective Subjective Date of Service: 03/09/25 Reason For Visit: PTSD, Polysubstance Use D/O,SI attempt via hanging Subjective Notes: Conditional Voluntary Healthcare Proxy: No Guardianship: No Medical Problems Affecting Mental Status: No Interim History: Patient found sitting in the dayroom, socializing with peers. He states that he feels good. Reports inadequate sleep, contrary to nursing report that he slept 8 hours. He does not take trazodone for sleep because it gives the opposite effect if he does not fall asleep after 45 minutes of taking the medication. He states that Seroquel was effective for sleep. Reports severe anxiety. He denies depression. Denies SI/HI/AVH. He wants to start Seroquel for sleep and Wellbutrin for anxiety instead of other SSRIs or antidepressants. Medication Compliance: Yes Side effects from medications: No Attending Groups: Yes Review of Systems Acute medical concerns: No Mental Status Exam Mental Status Exam Narrative: Appearance: Casually dressed, adequate Behavior: Calm and cooperative throughout the interview. Intermittent eye contact, and there are no signs of psychomotor agitation or retardation Speech: Normal volume and prosody Thought process: Logical and goal-directed Thought content: Future oriented no self-harming thoughts Mood: Anxious Affect: Constricted SI:denies HI:denies VH/AH:none Delusions: None Insight/judgment: Impaired insight and judgment Memory/cog: Alert, oriented x 4. grossly intact to conversational testing Diagnostics Vital Signs (24Hr): Vital Signs - 24 hr 03/08/25 20:00 Temperature 98.2 F Pulse Rate 104 H Respiratory Rate 18 Blood Pressure 105/75 Pulse Oximetry 99 Oxygen Delivery Method Room Air BMI result Body Mass Index 20.2 Medications Medications Current Medications Acetaminophen (Acetaminophen 325 Mg Tablet) 650 mg PO Q6H PRN PRN Reason: Headache/Pain, Scale 1-10 Al Hydroxide/Mg Hydroxide (Magnesium Hydrox/Alum Hydrox 30 Ml Oral.Susp) 30 ml PO Q6H PRN PRN Reason: Heartburn/Nausea Folic Acid (Folic Acid 1 Mg Tablet) 1 mg PO DAILY FRANC Last Admin: 03/09/25 08:50 Dose: 1 mg Hydroxyzine HCl (Hydroxyzine Hcl 25 Mg Tablet) 25 mg PO Q6H PRN PRN Reason: mild anxiety Last Admin: 03/08/25 21:56 Dose: 25 mg Lorazepam (Lorazepam 1 Mg Tablet) 1 mg PO Q2H PRN PRN Reason: ciwa 6-10 Last Admin: 03/08/25 16:21 Dose: 1 mg Lorazepam (Lorazepam 1 Mg Tablet) 2 mg PO Q2H PRN PRN Reason: ciwa 11+ Last Admin: 03/08/25 21:56 Dose: 2 mg Magnesium Hydroxide (Milk Of Magnesia 30 Ml Oral.Susp) 30 ml PO DAILY PRN PRN Reason: Constipation Melatonin (Melatonin 3 Mg Tablet) 9 mg PO BEDTIME [facility] Last Admin: 03/08/25 21:56 Dose: 9 mg Melatonin (Melatonin 3 Mg Tablet) 3 mg PO BEDTIME PRN PRN Reason: Insomia Multivitamins/Vitamin C (Multivitamin Tablet) 1 tab PO DAILY [facility] Last Admin: 03/09/25 08:49 Dose: 1 tab Nicotine (Nicotine 21 Mg Patch.Td24) 21 mg TRANSDERMA DAILY [facility] Last Admin: 03/09/25 08:49 Dose: 21 mg Nicotine Polacrilex (Nicotine Polacrilex 2 Mg Gum) 4 mg BUCCAL Q2H PRN PRN Reason: Nicotine Cravings Last Admin: 03/08/25 13:18 Dose: 4 mg Thiamine HCl (Thiamine Hcl 100 Mg Tablet) 100 mg PO DAILY [facility] Last Admin: 03/09/25 08:49 Dose: 100 mg Allergies Allergies Allergy/AdvReac Type Severity Reaction Status Date / Time levofloxacin Allergy Unknown Unknown Verified 03/07/25 13:01 Assessment & Plan Assessment & Plan (1) Anxiety: Status: Acute Code(s): F41.9 - Anxiety disorder, unspecified (2) PTSD (post-traumatic stress disorder): Status: Acute Code(s): F43.10 - Post-traumatic stress disorder, unspecified (3) Substance use: Status: Acute Code(s): F19.90 - Other psychoactive substance use, unspecified, uncomplicated (4) Suicide ideation: Status: Acute Code(s): R45.851 - Suicidal ideations Plan 29-year-old male who is a transfer from [facility] ED to [facility] behavioral health yesterday for suicide attempt. Per report, upon arriving to his home, police officers observed patient with a belt around his neck with visible ligature williamson consistent with self strangulation. On interview with his provider, patient notes that his girlfriend called the police after she thoughts he was trying to kill himself. He states that he locked himself in the bathroom to take some Klonopin tablet by mouth. However, he did not get a chance to take any tablet before the police arrived. Reports increased anxiety and stress since he found out his girlfriend was 8 weeks ago. He started thinking about the fact that he has a 6-year-old son whom he has not seen for the past 3 years. His son lives with the son's mother in [place]. He is also considering the fact that he and his girlfriend and currently financially stable. He has not been off fentanyl for 10 month and not a year, and his girlfriend has been sober from only recently. Also, he has only known his girlfriend for 7 months. All those factors made the patient thinks that now is not the right time to have a child. Due to significant anxiety and stress, he bought 105, 1 mg Klonopin tablets to treat his symptoms. He took approximately 10 mg of Klonopin daily within 12 consecutive days (last day was 03/05/2025). He states that the medication helped with his anxiety and stress but was not sustainable. The medications provided short-term relief. Sleep has also been an issue - he has trouble staying asleep, but attributes that to history of substance use. He takes Benadryl and melatonin with some improvement. He states that it was like a Band-Aid. He mentions that prior to his current symptoms, he was stable at baseline with routine stressors. He notes that he tried Buspirone in the past without relief of his anxiety symptoms. He has never been on antidepressants and adamantly refuses trial of an antidepressant. He reports mild anxiety at this time and denies depression. He denies history of hopelessness, helplessness, worthlessness, or anhedonia. He denies SI/HI/AH/VH. Denies official diagnosis of mental illness but reports anxiety, PTSD, and substance use disorder. He states that he was recently on prescribed oxycodone for dental pain. He denies recent fentanyl or street required opiate use. He denies alcohol use since April 2024. He vapes nicotine once weekly. His goal for this admission is to get connected with a therapist and psychiatrist closer to his home. Formulation/Clinical reasoning: Anxiety: Psychosocial stressors, undisclosed trauma, and self treatment with Klonopin may exacerbate the patient's symptoms. He is currently mildly depressed. No depression. No SI/HI/AVH. He is not interested in medication treatment at this time. His goal for this admission is to connect with a therapist and psychiatrist closer to his home. Encouraged to take p.r.n. medications. Will continue to monitor. Verbalized understanding and agreed with the plan. He signed a 3 day notice which expires next Thursday. He is on CIWA protocol for benzo withdrawal. CIWA scores today: 0/9/10/8. 03/09: Reports inadequate sleep and ?severe? anxiety. Seroquel was effective for sleep. He was to start Wellbutrin instead of other SSRIs or antidepressants for anxiety. Seroquel 25 mg daily and Wellbutrin 75 mg daily ordered for sleep and anxiety respectively; advised to take as prescribed. Instructed on the risks, benefits, and potential adverse reactions of the medications. Continue current treatment regimen. Verbalized understanding and agreed with the plan. Plan Admit to M5. CV 15 minutes check. Diagnostics as needed. Collateral contact. Continue remainder of regime. Encouraged full milieu. Discharge planning. Meds: Seroquel 25 mg daily at bedtime, Wellbutrin 75 mg daily Patient educated on: diagnosis, medication risk/benefits and therapeutic strategies Reason for continued inpatient stay Substantial Risk for: rapid decompensation Time Spent With Patient Time: Total time managing care of this patient today ____ minutes.
[2025-03-09 20:00] VITALS: BP 120/73; PULSE 115; RESP 18; TEMP 37.3; O2SAT 98
--- NOTE | 2025-03-10 09:49 | PM.PSYDC ---
DS: Providers Provider Date of admission: 03/07/25 14:25 Primary care physician: Samuel Physician Consults: 03/07/25 15:52 Addiction Medicine Provider Routine Consulting Provider: Addiction Covering Reason for consultation: Klonopin/Ativan street use 03/07/25 16:50 Consult to Hospitalist Routine Comment: Consulting Provider: [facility] Hospitalists Reason For Exam: Transfer pt DS: Diagnosis Discharge Diagnosis (1) Anxiety: Status: Acute (2) PTSD (post-traumatic stress disorder): Status: Acute (3) Substance use: Status: Acute (4) Suicide ideation: Status: Acute DS: Medications Discharge Medications Home Medications: Previous Rx's ?Medication ?Instructions ?Recorded quetiapine 25 mg tablet 25 mg PO BEDTIME PRN sleep #30 tabs 03/10/25 DS: Summary Time Spent with Patient Time attestation: Total time managing care of this patient today ____ minutes. Discharge Plan Discharge Anticipated Discharge Date/Time: 03/10/25 11:00 Patient Disposition: Home, Self-Care Discharge Diagnosis: PTSD Polysubstance Use Disorder Referrals: [facility] [Other] - 03/14/25 4:00 pm Referral Note: Follow up therapy appointment with Trish Gomez (Telehealth) [facility] [Other] - 03/20/25 4:00 pm Referral Note: Follow-up medication management appointment with Sima Gutierrez (Telehealth) Physician,Unknown J [Primary Care Provider, Medical] - 1 Week Discharge Medications: New quetiapine 25 mg Tablet 25 mg PO BEDTIME PRN (Reason: sleep) Qty: 30 0RF Rx Instructions: Take one-half to one tablet at bedtime as needed for sleep. Discontinued clonidine HCl 0.1 mg tablet 0.05 - 0.1 mg PO DAILY PRN (Reason: anxiety attack) Discharge Orders: Discharge Order (Routine); Ordered 03/10/25 Ordered By: Rosemarie Pulliam Diet: Advance to usual diet Activity on Discharge: As tolerated Stand Alone Forms: Patient Portal Discharge page Print Language: Kiswahili Care Plan Goals: Abstinence from Substances Mood and Behavioral Stabilization Health Concerns: Abstinence from Substances Mood and Behavioral Stabilization Plan of Treatment: Attend scheduled appointments Take medications as directed Assessment: Discharge on a three day notice of intent.
== END 2025-03-10 11:00 | disposition home or self-care (01) | DRG 882 ==
PROVIDERS: Admitting Provider Clinical Nurse Specialist Psychiatric/Mental Health, Adult; Visit Provider Clinical Nurse Specialist Psychiatric/Mental Health, Adult
DX: F43.10 Post-traumatic stress disorder, unspecified (principal); R45.851 Suicidal ideations; F17.210 Nicotine dependence, cigarettes, uncomplicated; Z71.6 Tobacco abuse counseling; F19.90 Other psychoactive substance use, unspecified, uncomplicated; F41.9 Anxiety disorder, unspecified

== ENCOUNTER → 2025-03-07 14:25 | Outpatient (BNV) | payer OTHER, SELFPAY | PROVIDERS: Admitting Provider Clinical Nurse Specialist Psychiatric/Mental Health, Adult; Visit Provider Nurse Practitioner Family | DX: F41.9 Anxiety disorder, unspecified (principal); F43.10 Post-traumatic stress disorder, unspecified; F19.90 Other psychoactive substance use, unspecified, uncomplicated; R45.851 Suicidal ideations | CPT/HCPCS: 90792; 99232 ==

== ENCOUNTER → 2025-03-07 14:25 | Outpatient (BNV) | payer MEDICAID, SELFPAY | PROVIDERS: Admitting Provider Clinical Nurse Specialist Psychiatric/Mental Health, Adult; Visit Provider Nurse Practitioner Family | DX: F43.10 Post-traumatic stress disorder, unspecified (principal) | CPT/HCPCS: 99221 ==